=== PATIENT | female | born 1940 | race Caucasian/White ===

== ENCOUNTER 2017-12-19 13:54 | Outpatient (RCR) | payer MEDICARE, BC, SELFPAY ==
--- NOTE | 2017-12-19 14:00 | PTDS_ITS ---
Date: December 19, 2017 Referring: Mike Carr MD Diagnosis: Subjective: History of Present Illness: Reyna states her shoulder function and pain are better than what they were pre op, but she still has intermittent discomfort throughout the lateral aspect of proximal humerus with active movements, particularly out to the side and overhead. (-) resting pain. She is able to sleep on her R side. Her cervical spine pain is much improved too. 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 S/p cuff repair in early June of this year. She underwent rehab and was able to restore most of her ROM and she has been on a minimally supervised program ( MSP) for the past couple months. She has a follow up today. Three weeks ago she aggravated her shoulder when she was carrying a heavy grocery bag, not quite back to where she was before her exacerbation, but much improved. ROM: Her cervical spine motion is limited within an articular pattern, but without pain on movement. R shoulder motion reveals good initiation of flexion/abduction, but she has scapular substitution at approximately 60-70 degrees and she gets hung with abduction at 80-90 degrees, occasionally in the sagittal plane also. If she flexes her elbow at 90 degrees, she can generally get through the sagittal plane without blocking. Once she gets by this point, she is able to flex to around 145-150 degrees. Her L thumb is at the T8 level when reaching behind her back, R thumb is 1 below, this causes some drawing throughout the anterior aspect of the proximal humerus. Her ER with elbow tucked into her side is 70 degrees R, 60 degrees on the L. She has weakness and discomfort when loading her R shoulder into abduction, pure end scaption, lesser degree IR for subscap, (-) pain with elbow flexion or forearm supination. She has some mild tenderness to palpation over the greater tuberosity on the R compared to the L. To a lesser degree, posterior aspect of humeral head. Treatment: Therapeutic Procedure [id number] Treatment Time: 30 mins Assessment: Reyna's symptoms have improved compared to a couple months ago, but she still getting hung up in the impingement range of 60-120 and still has some discomfort when loading the supra spinatus and subscapularis component of her rotator cuff. Fortunately she has minimal resting pain and functionally she does relatively well as long as she reaches overhead with her arm in the sagittal plane. She feels she is still recovering. All goals have been obtained except for full active movements with movements out to the side(see below) Projected goal: __x__ Carrying, moving, and handling objects [id number], Discharge status of [id number] ST: Increase PROM of the R shoulder to 120 degrees flexion, 60-70 degrees rotation. 2: Protect the cuff repair. 3: Minimize development of an adhesive capsulitis which will significantly impair her function. LT: Active ROM of R shoulder within a functional range to complete all of her ADLs. 2: Return to premorbid level of function. Plan: Session consisted of the evaluation along with review of her HEP. Discharge from formal PT, but she is going to continue with a independent wellness program in clinic for general conditioning as well as continued independent scapular stabilization exercises. DLW/dl *Dr. Carr, please sign this discharge summary if you are in agreement with this plan. cc: Mike Carr MD
== END 2017-12-29 23:59 | disposition home or self-care (01) ==
LOC: PT 13:54
PROVIDERS: PCP Internal Medicine; Referring Provider Specialist; Visit Provider Specialist
DX: Z47.89 Encounter for other orthopedic aftercare (principal); M75.101 Unspecified rotator cuff tear or rupture of right shoulder, not specified as traumatic
CPT/HCPCS: 97110

== ENCOUNTER 2018-01-12 11:25 | Outpatient (REF) | payer MEDICARE, BC, SELFPAY ==
[2018-01-12 13:28] LABS: Anion Gap 7.7 mmol/L (3-11); BUN 31 mg/dL (7-18); CO2 25.3 mmol/L (21.0-32.0); CREATININE 1.15 mg/dL (0.55-1.02); Chloride 100 mmol/L (98-107); Cholesterol 183 mg/dL (50-200); Estimated GFR 45.76 (mL/min/1.73m2); Glucose 89 mg/dL (70-100); HDL Cholesterol 58 mg/dL (40-60); LDL CHOLESTEROL 107 mg/dL (<100); Potassium 4.6 mmol/L (3.5-5.1); Sodium 133 mmol/L (136-145); TSH 0.11 uIU/mL (0.358-3.74); Triglyceride 100 mg/dL (30-150)
== END 2018-01-12 11:45 ==
LOC: NCHCN 11:25
PROVIDERS: PCP Internal Medicine; Visit Provider Internal Medicine
DX: I10 Essential (primary) hypertension (principal); E03.9 Hypothyroidism, unspecified
CPT/HCPCS: 80048; 80061; 83721; 84443

== ENCOUNTER 2018-02-22 16:07 | Outpatient (REF) | payer MEDICARE, BC, SELFPAY ==
[2018-02-22 21:14] LABS: FREE T4 1.28 ng/dL (0.76-1.46); TSH 0.34 uIU/mL (0.358-3.74)
== END 2018-02-22 16:27 ==
LOC: NCHCN 16:07
PROVIDERS: PCP Internal Medicine; Visit Provider Internal Medicine
DX: E03.9 Hypothyroidism, unspecified (principal)
CPT/HCPCS: 84439; 84443

== ENCOUNTER 2018-10-04 01:10 | Outpatient (CLI) | payer MEDICARE, BC, SELFPAY ==
--- NOTE | 2018-10-04 15:20 | DI.RAD_ITS ---
SYMPTOMS/DIAGNOSIS: OSTEOPOROSIS, M81.0 DEXA SCAN: Routine examination. Evaluation of the lateral spine shows no compression deformities. Evaluation of the left hip shows a total T score of -1.8 and a Z score of 0.2. This is consistent with osteopenia and an increased fracture risk. This compares with a total T score of -1.2 from 2016. Evaluation of the lumbar spine shows marked left convex scoliosis. There is a total T score of 0.6 and a Z score of 3.1, which is within normal limits. This compares with a total T score of 0.3 from 2016. There is no evidence of osteoporosis. IMPRESSION: Osteopenia in the left hip.
== END 2018-10-04 01:30 ==
PROVIDERS: PCP Internal Medicine; Visit Provider Internal Medicine
DX: M85.88 Other specified disorders of bone density and structure, other site (principal); M81.0 Age-related osteoporosis without current pathological fracture
CPT/HCPCS: 77080

== ENCOUNTER 2019-01-14 12:42 | Outpatient (REF) | payer MEDICARE, BC, SELFPAY ==
[2019-01-14 21:39] LABS: TSH 0.14 uIU/mL (0.36-3.74)
[2019-01-14 21:55] LABS: Vitamin D 25 Total 64.1 ng/ml (30-100)
== END 2019-01-14 13:02 ==
LOC: NCHCN 12:42
PROVIDERS: PCP Internal Medicine; Visit Provider Internal Medicine
DX: E03.9 Hypothyroidism, unspecified (principal); E55.9 Vitamin D deficiency, unspecified
CPT/HCPCS: 82306; 84443

== ENCOUNTER 2019-01-23 01:59 | Outpatient (CLI) | payer MEDICARE, BC, SELFPAY ==
--- NOTE | 2019-02-11 12:21 | ZIOP_ITS ---
ZIO Patch Sports Administrator Note: This is a ZIO Patch ordered for dizziness. Total enrollment time was 12 days and 20 hours. ?Patient had a minimum heart rate of 50 bpm maximal heart rate of 135 bpm and average heart rate of 66 bpm ?The prominent underlying rhythm was sinus rhythm ?There were 2 runs of supraventricular tachycardia with the longest lasting 6 beats. ?There were rare (less than 1%) supraventricular ectopic beats as well as couplets and triplets. ?There were rare (less than 1%) ventricular ectopic beats and no couplets or triplets. ?There were no episodes of ventricular tachycardia, no pauses greater than 3 seconds, no high degree heart block, and no episodes of atrial fibrillation.
== END 2019-01-23 02:19 ==
PROVIDERS: PCP Internal Medicine; Visit Provider Internal Medicine
DX: R42 Dizziness and giddiness (principal); I47.1 Supraventricular tachycardia; I49.1 Atrial premature depolarization; I49.3 Ventricular premature depolarization
CPT/HCPCS: 0296T

== ENCOUNTER 2019-02-11 12:21 | Outpatient (CLI) | payer MEDICARE, BC, SELFPAY | END 2019-02-11 12:41 | PROVIDERS: PCP Internal Medicine; Referring Provider Internal Medicine; Visit Provider Internal Medicine Cardiovascular Disease | DX: R42 Dizziness and giddiness (principal); I47.1 Supraventricular tachycardia; I49.1 Atrial premature depolarization; I49.3 Ventricular premature depolarization | CPT/HCPCS: 0298T ==

== ENCOUNTER 2019-02-26 10:01 | Outpatient (REF) | payer MEDICARE, BC, SELFPAY ==
[2019-02-26 13:17] LABS: FREE T4 1.38 ng/dL (0.76-1.46); TSH 0.21 uIU/mL (0.36-3.74)
== END 2019-02-26 10:21 ==
LOC: NCHCN 10:01
PROVIDERS: PCP Internal Medicine; Visit Provider Internal Medicine
DX: E03.9 Hypothyroidism, unspecified (principal)
CPT/HCPCS: 84439; 84443

== ENCOUNTER 2019-09-02 09:22 | Outpatient (REF) | payer MEDICARE, BC, SELFPAY ==
[2019-09-02 20:55] LABS: Abs Immature Grans 0.01 k/cumm (0.0-0.09); Absolute Basophil Count 0.03 k/cumm (0.0-0.2); Absolute Lymphocyte Count 1.36 k/cumm (1.2-3.4); Absolute Monocyte Count 0.66 k/cumm (0.11-0.7); Absolute Neutrophil Count 3.34 k/cumm (1.2-6.7); Basophils % 0.5; Eosinophils % 1.8; HCT 36.9 % (36.0-46.0); HGB 12.4 g/dL (12.0-15.5); Immature Grans % 0.2 %; Lymphocytes % 24.7; Mean Corp. HGB Concentration 33.6 g/dL (32.0-36.0); Mean Corpuscular Hemoglobin 25.4 pg (27.0-33.0); Mean Corpuscular Volume 75.5 fL (80-95); Neutrophils % 60.8; Platelet Count 290 x1000/uL (130-400); RBC 4.89 m/cumm (4.00-5.20); RBC Distribution Width 15.5 % (11.7-14.6)
[2019-09-02 21:23] LABS: ALT 31 U/L (14-59); AST 34 U/L (15-37); Albumin 3.7 g/dL (3.4-5.0); Alkaline Phosphatase 93 U/L (46-116); Bilirubin, Direct 0.09 mg/dL (0.00-0.20); Bilirubin, Total 0.5 mg/dL (0.2-1.0); Total Protein 7.3 g/dL (6.4-8.2)
== END 2019-09-02 09:42 ==
LOC: NCHCN 09:22
PROVIDERS: PCP Internal Medicine; Visit Provider Internal Medicine
DX: M19.90 Unspecified osteoarthritis, unspecified site (principal); Z79.899 Other long term (current) drug therapy
CPT/HCPCS: 80076; 85025

== ENCOUNTER 2019-11-07 14:05 | Outpatient (REF) | payer MEDICARE, BC, SELFPAY ==
[2019-11-07 20:56] LABS: Anion Gap 10.4 mmol/L (3-11); BUN 29 mg/dL (7-18); CO2 22.6 mmol/L (21.0-32.0); CREATININE 0.96 mg/dL (0.55-1.02); Calcium 9.2 mg/dL (8.5-10.1); Chloride 95 mmol/L (98-107); Estimated GFR 56.06 (mL/min/1.73m2); Glucose 87 mg/dL (74-106); Potassium 4.9 mmol/L (3.5-5.1); Sodium 128 mmol/L (136-145)
== END 2019-11-07 14:25 ==
LOC: NCHCN 14:05
PROVIDERS: PCP Internal Medicine; Visit Provider Internal Medicine
DX: E87.1 Hypo-osmolality and hyponatremia (principal)
CPT/HCPCS: 80048

== ENCOUNTER 2019-12-06 14:15 | Outpatient (REF) | payer MEDICARE, BC, SELFPAY ==
[2019-12-06 21:37] LABS: Sodium 137 mmol/L (136-145)
[2019-12-08 16:47] LABS: Osmolality, Urine 573 mOsm/kg (150-1,150)
[2019-12-08 16:56] LABS: Osmolality Serum 288 mOsm/kg (275-295)
== END 2019-12-06 14:35 ==
LOC: NCHCN 14:15
PROVIDERS: PCP Internal Medicine; Visit Provider Internal Medicine
DX: E87.1 Hypo-osmolality and hyponatremia (principal)
CPT/HCPCS: 83935; 83930; 84295

== ENCOUNTER 2020-01-31 11:05 | Outpatient (REF) | payer MEDICARE, BC, SELFPAY ==
[2020-01-31 21:01] LABS: Abs Immature Grans 0.02 10^3/uL (0.0-0.06); Absolute Basophil Count 0.04 10^3/uL (0.0-0.2); Absolute Lymphocyte Count 1.19 10^3/uL (1.2-3.4); Absolute Monocyte Count 0.75 10^3/uL (0.1-0.8); Absolute Neutrophil Count 2.82 10^3/uL (1.2-6.7); Basophils % 0.8; HGB 11.7 g/dL (11.2-15.7); Immature Grans % 0.4; Lymphocytes % 24.2; MCH 24.9 pg (27.0-33.0); MCHC 32.5 % (32.0-36.0); MCV 76.6 fL (80-95); MPV 10.6 fL (8.0-11.0); Monocytes % 15.2; Neutrophils % 57.4; Nucleated RBC 0 %; Platelet Count 280 10^3/uL (130-400); RDW 15.6 % (11.7-14.6); WBC 4.92 10^3/uL (4.4-10.8)
[2020-01-31 21:17] LABS: ALT 25 U/L (14-59); AST 26 U/L (15-37); Albumin 3.6 g/dL (3.4-5.0); Alkaline Phosphatase 100 U/L (46-116); Bilirubin, Total 0.4 mg/dL (0.2-1.0); CREATININE 1.07 mg/dL (0.55-1.02); Estimated GFR 49.47 (mL/min/1.73m2); Total Protein 6.9 g/dL (6.4-8.2)
[2020-02-03 11:18] LABS: Sodium 134 mmol/L (136-145)
== END 2020-01-31 11:25 ==
LOC: NCHCN 11:05
PROVIDERS: PCP Internal Medicine; Visit Provider Internal Medicine
DX: M19.90 Unspecified osteoarthritis, unspecified site (principal); Z79.899 Other long term (current) drug therapy; E87.1 Hypo-osmolality and hyponatremia
CPT/HCPCS: 80076; 82565; 84295; 85025

== ENCOUNTER 2020-07-07 14:19 | Outpatient (REF) | payer MEDICARE, BC, SELFPAY ==
[2020-07-07 15:20] LABS: Abs Immature Grans 0.01 10^3/uL (0.0-0.06); Absolute Basophil Count 0.04 10^3/uL (0.0-0.2); Absolute Eosinophil Count 0.07 10^3/uL (0.0-0.7); Absolute Lymphocyte Count 1.24 10^3/uL (1.2-3.4); Absolute Monocyte Count 0.65 10^3/uL (0.1-0.8); Absolute Neutrophil Count 4.06 10^3/uL (1.2-6.7); Basophils % 0.7; Eosinophils % 1.2; HCT 36.3 % (36.0-46.0); HGB 11.8 g/dL (11.2-15.7); Immature Grans % 0.2; Lymphocytes % 20.4; MCH 25.5 pg (27.0-33.0); MCHC 32.5 % (32.0-36.0); MCV 78.6 fL (80-95); MPV 10.7 fL (8.0-11.0); Monocytes % 10.7; Neutrophils % 66.8; Nucleated RBC 0 %; Platelet Count 279 10^3/uL (130-400); RBC 4.62 10^6/uL (3.93-5.22); RDW 15.5 % (11.7-14.6); RDW-SD 43.8 fL; WBC 6.07 10^3/uL (4.4-10.8)
[2020-07-07 15:36] LABS: ALT 25 U/L (14-59); AST 27 U/L (15-37); Albumin 3.7 g/dL (3.4-5.0); Alkaline Phosphatase 89 U/L (46-116); Anion Gap 10.3 mmol/L (3-11); BUN 25 mg/dL (7-18); Bilirubin, Total 0.4 mg/dL (0.2-1.0); CO2 25.7 mmol/L (21.0-32.0); Calcium 9.3 mg/dL (8.5-10.1); Chloride 100 mmol/L (98-107); Estimated GFR 53.48 (mL/min/1.73m2); Glucose 81 mg/dL (74-106); Potassium 4.3 mmol/L (3.5-5.1); Sodium 136 mmol/L (136-145)
== END 2020-07-07 14:20 | disposition home or self-care (01) ==
LOC: NCHCN 14:19
PROVIDERS: PCP Internal Medicine; Visit Provider Internal Medicine
DX: M19.90 Unspecified osteoarthritis, unspecified site (principal); Z79.899 Other long term (current) drug therapy
CPT/HCPCS: 80053; 85025

== ENCOUNTER 2020-07-17 04:32 | Outpatient (CLI) | payer MEDICARE, BC, SELFPAY ==
--- NOTE | 2020-07-17 | DI.RAD_ITS ---
EXAM: XR RIBS LT W PA LAT CHEST CLINICAL HISTORY: CHEST WALL PAIN,R07.89,. COMPARISON: CR CHEST 2 VIEWS PA,LAT from 09/05/2014 FINDINGS: LUNGS: Clear. No pneumothorax is seen. No infiltrate or effusion. HEART: Normal in size. Aorta is mildly tortuous. BONES: No displaced rib fracture is seen. No bony destructive lesion is seen. The spine shows degene rative disc changes. No compression fracture. There is a scoliosis at the thoracolumbar junction. IMPRESSION: Unremarkable chest and left ribs. Thoracolumbar scoliosis.
== END 2020-07-17 04:52 ==
PROVIDERS: PCP Internal Medicine; Visit Provider Internal Medicine
DX: R07.89 Other chest pain (principal); M41.85 Other forms of scoliosis, thoracolumbar region
CPT/HCPCS: 71046; 71100

== ENCOUNTER 2020-09-15 21:45 | Outpatient (REF) | payer MEDICARE, BC, SELFPAY ==
[2020-09-15 20:39] LABS: HCT 34.2 % (36.0-46.0); HGB 11.5 g/dL (11.2-15.7); MCH 26.3 pg (27.0-33.0); MCHC 33.6 % (32.0-36.0); MCV 78.3 fL (80-95); MPV 10.6 fL (8.0-11.0); Platelet Count 262 10^3/uL (130-400); RBC 4.37 10^6/uL (3.93-5.22); RDW 14.6 % (11.7-14.6); RDW-SD 40.9 fL; WBC 5.72 10^3/uL (4.4-10.8)
[2020-09-15 20:58] LABS: ALT 25 U/L (14-59); AST 30 U/L (15-37); Albumin 3.7 g/dL (3.4-5.0); Alkaline Phosphatase 95 U/L (46-116); Anion Gap 9.4 mmol/L (3-11); BUN 25 mg/dL (7-18); Bilirubin, Total 0.4 mg/dL (0.2-1.0); CO2 25.6 mmol/L (21.0-32.0); CREATININE 1.1 mg/dL (0.55-1.02); Calcium 8.6 mg/dL (8.5-10.1); Chloride 98 mmol/L (98-107); Estimated GFR 47.91 (mL/min/1.73m2); FREE T4 1.39 ng/dL (0.76-1.46); Glucose 98 mg/dL (74-106); NT-proBNP 362 pg/mL (<300); Potassium 4.3 mmol/L (3.5-5.1); Sodium 133 mmol/L (136-145); TSH (W/Ref FT4) 1.05 uIU/mL (0.36-3.74); Total Protein 6.9 g/dL (6.4-8.2)
== END 2020-09-15 21:46 | disposition home or self-care (01) ==
LOC: NCHCN 21:45
PROVIDERS: PCP Internal Medicine; Visit Provider Internal Medicine
DX: R53.83 Other fatigue (principal); R06.09 Other forms of dyspnea; E03.9 Hypothyroidism, unspecified; I10 Essential (primary) hypertension
CPT/HCPCS: 80053; 85027; 83880; 84439; 84443

== ENCOUNTER 2020-09-16 07:58 | Outpatient (CLI) | payer MEDICARE, BC, SELFPAY ==
[2020-09-16 09:35] LABS: D-Dimer 1050 ng/mlFEU (<500)
== END 2020-09-16 07:59 | disposition home or self-care (01) ==
LOC: LBO 08:02
PROVIDERS: PCP Internal Medicine; Visit Provider Internal Medicine
DX: R06.09 Other forms of dyspnea (principal)
CPT/HCPCS: 36415; 85379

== ENCOUNTER 2020-09-17 12:49 | Outpatient (CLI) | payer MEDICARE, BC, SELFPAY ==
--- NOTE | 2020-09-17 | DI.CT_ITS ---
Exam(s) CT CHEST PE CTA EXAM: CT CHEST PE CTA CLINICAL HISTORY: BORRERO R06.09. TECHNIQUE: Imaging Protocol: CT angiography of the chest was performed using pulmonary embolus elmo col. Multi planar reconstructions were performed. CONTRAST MATERIAL: Intravenous: Omnipaque 350 Contrast volume: 100 cc COMPARISON: CT ABD PELVIS WITH CONTRAST from 12/07/2014 FINDINGS: CHEST: PULMONARY ARTERIES: There are no intraluminal filling defects to suggest acute pulmonary emboli. LUNGS: There is a small subpleural nodular density in the posterior aspect of the right lung which me asures 4 x 3 millimeters. This is in the superior segment of the right lower lobe.. There are no in filtrates nor evidence of pulmonary infarction.. There are no pleural effusions. MEDIASTINUM: There is no hilar nor mediastinal adenopathy. Visualized thyroid unremarkable. CARDIAC: Mild cardiomegaly. No pericardial effusion.Caliber of the thoracic aorta is upper normal. No dissection evident. There is no significant shift of the interventricular septum. PARTIALLY VISUALIZED UPPERMOST ABDOMEN: No significant adrenal masses. No splenomegaly. Gallbladder surgically absent. Incidentally noted is a subcapsular lesion in the upper right hepatic lobe which is probably a cyst or hemangioma and was evident in 2014. In addition, there is a small cyst in the lateral cortex of the right kidney partially included in the field. OSSEOUS: Multilevel chronic degenerative disc disease. No significant osseous lesions evident.. IMPRESSION: 1. No evidence of acute pulmonary emboli. No evidence of pulmonary infarction.No pleural effusions. However, there is a 4 x 3 millimeter subpleural small nodular density in the posterior aspect of the superior segment of the right lower lobe. Recommend follow-up CT scan in 6 months. 2. Mild cardiomegaly. No pericardial effusion. No aortic dissection. 3. Incidental abdominal findings as described above. RADIATION DOSE DELIVERED: 330.21mGy.cm Total DLP DATA REPOSITORY: All CT scans at this facility are submitted to the National Radiology Data Registry (NRDR) Dose Index Registry (DIR) with the [employer] ([employer]). RADIATION OPTIMIZATION: All CT scans at this facility use at least one of these dose optimization te chniques: automated exposure control; mA and/or kV adjustment per patient size (includes targeted exa ms where dose is matched to clinical indication); or iterative reconstruction.
== END 2020-09-17 13:09 ==
PROVIDERS: PCP Internal Medicine; Visit Provider Nurse Practitioner Family
DX: R06.09 Other forms of dyspnea (principal); I51.7 Cardiomegaly
CPT/HCPCS: 71275

== ENCOUNTER 2020-10-12 12:40 | Outpatient (CLI) | payer MEDICARE, BC, SELFPAY ==
--- NOTE | 2020-10-12 | DI.CT_ITS ---
Exam(s) CT HEAD WO EXAM: CT HEAD WO CLINICAL HISTORY: HX CLOSED HEAD INJURY Z87.820. TECHNIQUE: Imaging Protocol: Axial computed tomography images with coronal and sagittal reformatted images were created and reviewed COMPARISON: CT HEAD WITHOUT CONTRAST from 09/18/2008 FINDINGS: There is evidence of previous left parietal craniotomy. There is no evidence of intracranial hemorrhage, mass effect, or shift of midline structures. There are no extra-axial fluid collections. The ventricles are not enlarged or shifted and there is no blo od within the ventricular system nor within the basal cisterns. There is abundant bilateral periventricular hypodensity consistent with chronic small vessel disease. IMPRESSION: Abundant bilateral periventricular hypodensity consistent with chronic small vessel disease. If clin ically indicated follow-up MRI can be performed for added sensitivity and specificity. Again noted is evidence of previous left parietal craniotomy. RADIATION DOSE DELIVERED: 685.97mGy.cm Total DLP DATA REPOSITORY: All CT scans at this facility are submitted to the National Radiology Data Registry (NRDR) Dose Index Registry (DIR) with the [employer] (A[employer]). RADIATION OPTIMIZATION: All CT scans at this facility use at least one of these dose optimization te chniques: automated exposure control; mA and/or kV adjustment per patient size (includes targeted exa ms where dose is matched to clinical indication); or iterative reconstruction.
== END 2020-10-12 13:00 ==
PROVIDERS: PCP Internal Medicine; Visit Provider Family Medicine
DX: Z87.820 Personal history of traumatic brain injury (principal)
CPT/HCPCS: 70450

== ENCOUNTER 2020-11-17 09:13 | Outpatient (CLI) | payer MEDICARE, BC, SELFPAY ==
--- NOTE | 2020-11-17 | DI.CT_ITS ---
Exam(s) CT HEAD WO EXAM: CT HEAD WO CLINICAL HISTORY: DIZZINESS, R42; H/O CLOSED HEAD INJURY, Z87.820. TECHNIQUE: Imaging Protocol: Axial computed tomography images with coronal and sagittal reformatted images were created and reviewed COMPARISON: CT CT HEAD WO from 10/12/2020 FINDINGS: Ventricles and Extra axial spaces: Normal in size and morphology for the patient's age. Hemorrhage: None. Cerebral parenchyma: Mild mild white matter changes consistent with small vessel disease. Midline shift: None. Brainstem/Cerebellum: Normal. Calvarium: Left parietal craniotomy defect again noted.. Visualized Paranasal sinuses/Mastoids: Clear. Soft Tissues: Unremarkable. IMPRESSION: No acute intracranial process. RADIATION DOSE DELIVERED: 707.84mGy.cm Total DLP DATA REPOSITORY: All CT scans at this facility are submitted to the National Radiology Data Registry (NRDR) Dose Index Registry (DIR) with the [employer] (ACR). RADIATION OPTIMIZATION: All CT scans at this facility use at least one of these dose optimization te chniques: automated exposure control; mA and/or kV adjustment per patient size (includes targeted exa ms where dose is matched to clinical indication); or iterative reconstruction.
== END 2020-11-17 09:33 ==
PROVIDERS: PCP Internal Medicine; Visit Provider Family Medicine
DX: R42 Dizziness and giddiness (principal); Z87.820 Personal history of traumatic brain injury
CPT/HCPCS: 70450

== ENCOUNTER 2020-11-27 13:52 | Outpatient (REF) | payer MEDICARE, BC, SELFPAY ==
[2020-11-27 20:39] LABS: Abs Immature Grans 0.01 10^3/uL (0.0-0.06); Absolute Basophil Count 0.05 10^3/uL (0.0-0.2); Absolute Eosinophil Count 0.09 10^3/uL (0.0-0.7); Absolute Lymphocyte Count 1.39 10^3/uL (1.2-3.4); Absolute Monocyte Count 0.58 10^3/uL (0.1-0.8); Absolute Neutrophil Count 3.02 10^3/uL (1.2-6.7); Eosinophils % 1.8; HCT 37.9 % (36.0-46.0); HGB 12.1 g/dL (11.2-15.7); Immature Grans % 0.2; MCH 25.4 pg (27.0-33.0); MCHC 31.9 % (32.0-36.0); MCV 79.6 fL (80-95); MPV 10.6 fL (8.0-11.0); Monocytes % 11.3; Neutrophils % 58.7; Nucleated RBC 0 %; Platelet Count 291 10^3/uL (130-400); RBC 4.76 10^6/uL (3.93-5.22); RDW 14.9 % (11.7-14.6); WBC 5.14 10^3/uL (4.4-10.8)
[2020-11-27 20:55] LABS: ALT 24 U/L (14-59); AST 27 U/L (15-37); Albumin 3.8 g/dL (3.4-5.0); Alkaline Phosphatase 92 U/L (46-116); Anion Gap 7.8 mmol/L (3-11); BUN 19 mg/dL (7-18); Bilirubin, Total 0.4 mg/dL (0.2-1.0); CO2 27.2 mmol/L (21.0-32.0); Calcium 9.1 mg/dL (8.5-10.1); Chloride 101 mmol/L (98-107); Estimated GFR 53.35 (mL/min/1.73m2); Glucose 100 mg/dL (74-106); Potassium 4.5 mmol/L (3.5-5.1); Sodium 136 mmol/L (136-145); Total Protein 7.1 g/dL (6.4-8.2)
[2020-11-30 10:46] LABS: Lyme Ab w Rflx to Lyme Confirm Negative (Negative)
[2020-12-01 16:05] LABS: Anaplasma phagocytophilum Negative (Negative); B. miyamotoi PCR Negative (Negative); Babesia divergens/MO-1 Negative (Negative); Babesia duncani Negative (Negative); Babesia microti Negative (Negative); Ehrlichia chaffeensis Negative (Negative); Ehrlichia ewingii/canis Negative (Negative); Ehrlichia muris eauclairensis Negative (Negative)
== END 2020-11-27 13:53 | disposition home or self-care (01) ==
LOC: NCHCN 13:52
PROVIDERS: PCP Internal Medicine; Visit Provider Family Medicine
DX: M25.50 Pain in unspecified joint (principal)
CPT/HCPCS: 80053; 87798; 85025; 86618

== ENCOUNTER 2020-12-08 03:32 | Outpatient (CLI) | payer MEDICARE, BC, SELFPAY ==
[2020-12-08 10:28] LABS: Bilirubin Negative (Negative); Blood Negative (Negative); Clarity Clear (Clear); Glucose Negative (Negative); Ketones Negative (Negative); Leukocyte Esterase Negative (Negative); Nitrite Negative (Negative); Specific Gravity 1.015 (1.005-1.025); Urobilinogen 0.2 EU/dL (Up TO 0.2); pH 6.5 (5-8)
[2020-12-09 09:44] LABS: C3 Complement 133 mg/dL (81-157); C4 Complement 30 mg/dL (13-39)
[2020-12-10 12:24] LABS: dsDNA Ab, IgG <12.3 IU/mL (<30.0)
== END 2020-12-08 03:33 | disposition home or self-care (01) ==
PROVIDERS: PCP Internal Medicine; Visit Provider Nurse Practitioner Family
DX: R76.8 Other specified abnormal immunological findings in serum (principal); L93.2 Other local lupus erythematosus
CPT/HCPCS: 36415; 81003; 86160; 86225

== ENCOUNTER 2021-04-01 16:24 | Outpatient (REF) | payer MEDICARE, BC, SELFPAY ==
[2021-04-01 22:34] LABS: Abs Immature Grans 0.02 10^3/uL (0.0-0.06); Absolute Basophil Count 0.05 10^3/uL (0.0-0.2); Absolute Eosinophil Count 0.08 10^3/uL (0.0-0.7); Absolute Lymphocyte Count 1.23 10^3/uL (1.2-3.4); Absolute Monocyte Count 0.68 10^3/uL (0.1-0.8); Absolute Neutrophil Count 3.35 10^3/uL (1.2-6.7); Basophils % 0.9; Eosinophils % 1.5; HCT 35.5 % (36.0-46.0); HGB 11.6 g/dL (11.2-15.7); Immature Grans % 0.4; Lymphocytes % 22.7; MCH 25.7 pg (27.0-33.0); MCHC 32.7 % (32.0-36.0); MCV 78.7 fL (80-95); MPV 11.1 fL (8.0-11.0); Monocytes % 12.6; Neutrophils % 61.9; Nucleated RBC 0 %; Platelet Count 314 10^3/uL (130-400); RBC 4.51 10^6/uL (3.93-5.22); RDW 14.9 % (11.7-14.6); RDW-SD 43.1 fL; WBC 5.41 10^3/uL (4.4-10.8)
[2021-04-01 23:00] LABS: ALT 23 U/L (14-59); AST 25 U/L (15-37); Albumin 3.7 g/dL (3.4-5.0); Alkaline Phosphatase 84 U/L (46-116); Anion Gap 9.5 mmol/L (3-11); BUN 29 mg/dL (7-18); Bilirubin, Total 0.3 mg/dL (0.2-1.0); CO2 24.5 mmol/L (21.0-32.0); CREATININE 1.1 mg/dL (0.55-1.02); Calcium 8.6 mg/dL (8.5-10.1); Chloride 98 mmol/L (98-107); Estimated GFR 47.79 (mL/min/1.73m2); Glucose 74 mg/dL (74-106); Sodium 132 mmol/L (136-145)
== END 2021-04-01 16:25 | disposition home or self-care (01) ==
LOC: NCHCN 16:24
PROVIDERS: PCP Internal Medicine; Visit Provider Internal Medicine
DX: Z79.899 Other long term (current) drug therapy (principal); M19.90 Unspecified osteoarthritis, unspecified site
CPT/HCPCS: 80053; 85025

== ENCOUNTER 2021-05-24 01:54 | Outpatient (CLI) | payer MEDICARE, BC, SELFPAY ==
--- NOTE | 2021-05-24 13:35 | DI.RAD_ITS ---
Exam(s) XR CHEST 2V PA LATERAL EXAM: XR CHEST 2V PA LATERAL CLINICAL HISTORY: DYSPNEA ON EXERTION,R06.09,ASSESS FOR INTERSTITIAL LUNG DISEASE,INFLAMMATOR. TECHNIQUE: 2D digital imaging was performed. COMPARISON: CR XR RIBS LT W PA LAT CHEST from 07/17/2020 FINDINGS: Tenting of the right hemidiaphragm is unchanged. Surgical clips in the right axilla again noted. Heart size is normal. The mediastinum is not widened. Lungs are clear. No infiltrates nor pleural effusions. IMPRESSION: No acute pulmonary findings. DATA REPOSITORY: RADIATION DOSE DELIVERED:
== END 2021-05-24 02:14 ==
PROVIDERS: PCP Internal Medicine; Visit Provider Internal Medicine
DX: R06.09 Other forms of dyspnea (principal)
CPT/HCPCS: 71046

== ENCOUNTER 2021-06-17 00:57 | Outpatient (CLI) | payer MEDICARE, BC, SELFPAY ==
--- NOTE | 2021-06-17 | DI.US_ITS ---
APPROVED REPORT EXAM: Comprehensive 2D, Doppler, and color-flow Echocardiogram Patient Location: Out-Patient Team Assembly Line Machine Operator: Batool Moreno RDCS (AE) Indications: Dyspne on exerction Other Information Study Quality: Good Conclusion Normal left ventricular chamber size. Borderline concentric left ventricular hypertrophy with disprop ortionate upper septal thickening. Estimated ejection fraction is 60%. Wall motion is normal Normal right ventricular size and systolic function Both atria are normal in size Trileaflet aortic valve with mild regurgitation Mild mitral annular calcification with mild to moderate mitral regurgitation Normal tricuspid valve with mild to moderate regurgitation. Estimated right ventricular systolic pres sure is 27 mmHg Borderline dilated ascending aorta, 3.45 cm Wall motion Left Ventricle The left ventricle is normal size. The left ventricular systolic function is normal. The left ventric ular ejection fraction is within the normal range. Borderline concentric left ventricular hypertrophy . Disproportionate upper septal thickening There is normal LV segmental wall motion. There is no vent ricular septal defect visualized. LVEF is 60%. Right Ventricle The right ventricle is normal size. The right ventricular systolic function is normal. The RVSP is 27 .5 mmHg. Atria The left atrium size is normal. The right atrium size is normal. The interatrial septum is intact wit h no evidence for an atrial septal defect. Saline bubble contrast intravenous injection demonstrates PFO. Aortic Valve The aortic valve is normal in structure. Aortic valve is trileaflet. There is no aortic valvular sten osis. Mild aortic regurgitation. Mitral Valve Mild mitral annular calcification. No evidence of mitral valve stenosis. Mild to moderate mitral regu rgitation. Tricuspid Valve The tricuspid valve is normal in structure. There is no tricuspid valve stenosis. Mild to moderate tr icuspid regurgitation. Pulmonic Valve The pulmonary valve is normal in structure. There is no pulmonic valvular stenosis. Trace pulmonic re gurgitation. Great Vessels The aortic root is normal in size. The ascending aorta is mildly dilated. Aortic arch is not well vis ualized. IVC is normal in size and collapses >50% with inspiration. Pericardium There is no pericardial effusion. 2D Dimensions IVSD d PLAX 1.10 cm F: 0.6-1.0 LV Vol A2C d MOD 54.8 mL LVPW d PLAX 1.08 cm F: 0.6 - 1.0 LV Vol A4C d MOD 80.8 mL LVID d PLAX 4.27 cm F: 3.8 - 5.2 LA vol/ BSA A2C s A-L 31.9 mL/m2 LVDs 2.90 cm F: 2.2 - 3.5 LA vol/ BSA A4C s A-L 27.8 mL/m2 Ao Root d 2.99 cm F: 2.7 - 3.3 LA Vol/ BSA Biplane s A-L 30.7 mL/m2 RA Area A4C 11.85 cm2 LA Area A4C s MOD 15.67 cm2 RA Vol/ BSA A4C s A-L 17.5 mL/m2 LA Area A2C s MOD 17.29 cm2 Ao Asc Diam d 3.45 cm F: 2.3 - 3.1 LV EF A4C MOD 60.6 % LV EF Teichholz 58.9 % LV EF A2C MOD 60.7 % LVEF (Foster's) 59.78 % F: 54 - 74 LV EF Biplane MOD 59.8 % LV Volume 55.99 mL F: 46 - 106 SV 41.23 mL LV Volume Index 34.99 mL/m2 F: 29 - 61 SV Index 25.71 mL/m2 LV Vol Biplane MOD 69.0 mL FS 30.90 % LV Diastology MV E' medial 0.132 (>0.07 m/s) E/A Ratio 0.8 LV E/e MED 4.10 (<14) MV E Vmax 0.54 (0.4-1.3 m/s) MV E' lateral 0.059 (>0.1 m/s) MV A Vmax 0.70 (0.4-1.3 m/s) LV E/e LAT 9.25 (<14) MV E/A Ratio 0.74 MV E/E' medial 4.13 MV E/E' lateral 9.29 Aortic Valve LVOT Area 3.27 cm2 AoV Area Vmax 1.99 cm2 LVOT Vmax 0.97 m/s AoV Area/ BSA (Vmax) 1.24 cm2/m2 LVOT Mean Josep. 0.70 m/s JAMI Mean Josep. 2.06 cm2 LVOT Peak Grad 3.7 mmHg JAMI Mean Josep. Index 1.29 cm2/m2 LVOT Mean Grad 2.2 mmHg AR DT 2251 msec LVOT VTI 0.239 m AR PHT 653 msec LVOT Diam s 2.00 cm AoV Vmax 1.59 m/s Velocity Ratio 0.61 AoV Mean Josep. 1.11 m/s AoV Peak Grad 10.1 mmHg LVOT SV 78.11 mL AoV Mean Grad 5.4 mmHg AoV VTI 0.355 m AoV Area VTI 2.20 cm2 AoV Area/ BSA (VTI) 1.37 cm/m2 Mitral Valve MV DT 296 (160-240 msec) MR Vmax 5.65 m/s MV PHT 86 msec MR VTI 2.142 m MV Area PHT 2.57 cm2 MR Peak Grad 127.5 mmHg MV VTI 0.256 m MR Mean Grad 81.8 mmHg MV VTI Annulus 0.285 m MV Area VTI 3.44 (4.0-6.0 cm2) Pulmonary Valve PV Vmax 0.88 (0.5-1.5 m/s) RVOT Peak Gr. 1.09 mmHg PV Peak Grad 3.1 mmHg RVOT Mean Gr. 0.55 mmHg PV Mean Grad 1.6 mmHg RVOT VTI 0.102 m PV VTI 0.171 m RVOT Vmax 0.52 m/s Tricuspid Valve TR Peak Grad 24.5 mmHg TR Vmax 2.48 m/s RA Pressure 3.00 mmHg RVSP (TR) 27.5 mmHg
== END 2021-06-17 01:17 ==
PROVIDERS: PCP Internal Medicine; Visit Provider Internal Medicine
DX: R06.09 Other forms of dyspnea (principal); I08.3 Combined rheumatic disorders of mitral, aortic and tricuspid valves; I77.810 Thoracic aortic ectasia
CPT/HCPCS: 93306

== ENCOUNTER 2021-07-01 02:16 | Outpatient (CLI) | payer MEDICARE, BC, SELFPAY ==
--- NOTE | 2021-07-01 | DI.NM_ITS ---
APPROVED REPORT Exam: Exercise Treadmill Patient Location: Out-Patient Room/Bed: Stress Nurse: Karen Bee RN Ordering Provider:RYDER MERRILL, Contact Number: [phone] BMI: 25.50 Baseline Rhythm: Sinus Rhythm, 1D AV Block Indications: Dyspnea on exertion; AFib; osteoarthritis Medical History Medical History: Hypertension, AFib, BORRERO, lupus, anxiety, gerd Cardiac Medications: Tambocor, metoprolol succinate, losartan, levothyroxine Allergies: Hydrochlorothiazide, hydroxychloroquine sulfate, fluoxetine, codeine, fentanyl, fosemax, m orphine, opioids, doxycyline, tetrocycline, colchicine Cardiac Risk Factors: Hypertension, family hx Previous Cardiac Procedures: None Pretest Chest Pain Characteristics: None Exercise History: Physically active Physical Disabilities: None Lung Sounds: Clear to auscultation Heart Sounds: Regular Stress Test Details Test: Exercise stress testing was performed using a Americo protocol. Nuclear Acquisition: Rest Tc-99m/Stress Tc-99m 1 day Rest Isotope: Tc-99m Sestamibi. Dose: 10.8 Date: 07/01/2021 Injection Time: 0910 Stress Isotope: Tc-99m Sestamibi. Dose: 32.9 Date: 07/01/2021 Injection Time: 1110 HR Resting HR Supine: 72 bpm Max Heart Rate (APMHR): 140.121602 bpm Resting HR Standin bpm Target HR (85% APMHR): 119.510878 bpm Max HR Achieved: 146 bpm % of APMHR: 104.29 Recovery HR: 90 bpm HR response to stress: Normal HR response to stress Comment: Metoprolol succinate held for 48hrs BP Resting BP Supine: 162/84 mmHg Resting BP Standin/84 mmHg Max BP: 174/76 mmHg Recovery BP: 150/72 mmHg BP response to stress: Normal blood pressure response to stress. ECG Resting ECG: Sinus Rhythm, 1D AV Block Ectopy: None Stress ECG: Sinus Tachycardia ST Change: No significant ST segment changes noted Arrhythmia: None Recovery ECG: Sinus Rhythm, 1D AV Block Recovery ST Change: No significant ST segment changes noted Recovery Arrhythmia: Rare PVC Clinical Reason for Termination: Fatigue Stress Symptoms: General Fatigue, Dyspnea Exercise duration: 7 min26 sec Highest Stage Reached: Stage 3: 3.4 mph at 14% grade. Exercise capacity: 9.26 METs Williamson Treadmill Score: 5.9 Rate Pressure Product: 15909 Stress ECG Conclusion 1. Resting electrocardiogram first-degree AV block 2. Patient exercised on the Americo protocol completed a workload of 9.26 METS, stopping due to fatigue and shortness of breath 3. Normal heart rate and blood pressure response to exercise 4. Patient achieved greater than 100% of predicted heart rate for age 5. The electrocardiographic portion of the test showed no evidence of myocardial ischemia 6. Rare PVCs were seen Williamson Treadmill Score is 5.9 which is Low risk. Stress Test Summary STAGE Time (mins) Speed (mph) Grade (%) HR BP SYMPTOMS METS Supine 72 162/84 Standing 78 162/84 SpO2 98% 1 3 1.7 10 110 170/84 SpO2 98% 4.6 2 6 2.5 12 133 185/86 SpO2 97% 7 3 9 3.4 14 145 Moderate SOB, SpO2 97% 10.2 1 min recovery 133 174/76 Mild SOB, SpO2 98% 3 min recovery 98 168/66 SOB improving, SpO2 98% 6 min recovery 90 150/72 SOB resolved, SpO2 98% MPI Conclusion Normal myocardial perfusion without evidence of ischemia or prior infarction EF 64%, normal wall motion Radiologist Interpretation Radiologist agrees with Structural Design Engineer's Interpretation. Radiologist Interpretation by: Ashly Sahni MD Interpretation Date/Time: 07/01/2021 16:58:54
== END 2021-07-01 02:36 ==
PROVIDERS: PCP Internal Medicine; Visit Provider Internal Medicine
DX: R06.09 Other forms of dyspnea (principal); I48.91 Unspecified atrial fibrillation
CPT/HCPCS: 78452; 93016; 93018; 93017

== ENCOUNTER 2021-08-10 10:38 | Outpatient (REF) | payer MEDICARE, BC, SELFPAY ==
[2021-08-10 16:50] LABS: Abs Immature Grans 0.03 10^3/uL (0.0-0.06); Absolute Basophil Count 0.03 10^3/uL (0.0-0.2); Absolute Eosinophil Count 0.08 10^3/uL (0.0-0.7); Absolute Lymphocyte Count 1.24 10^3/uL (1.2-3.4); Absolute Monocyte Count 0.55 10^3/uL (0.1-0.8); Absolute Neutrophil Count 4.57 10^3/uL (1.2-6.7); Basophils % 0.5; Eosinophils % 1.2; HCT 35.4 % (36.0-46.0); HGB 11.4 g/dL (11.2-15.7); Immature Grans % 0.5; Lymphocytes % 19.1; MCH 25.5 pg (27.0-33.0); MCHC 32.2 % (32.0-36.0); MCV 79.2 fL (80-95); MPV 11.2 fL (8.0-11.0); Monocytes % 8.5; Neutrophils % 70.2; Nucleated RBC 0 %; Platelet Count 279 10^3/uL (130-400); RBC 4.47 10^6/uL (3.93-5.22); RDW 15.2 % (11.7-14.6); RDW-SD 43.4 fL
[2021-08-10 17:21] LABS: ALT 25 U/L (14-59); AST 24 U/L (15-37); Albumin 3.8 g/dL (3.4-5.0); Alkaline Phosphatase 89 U/L (46-116); BUN 27 mg/dL (7-18); Bilirubin, Total 0.4 mg/dL (0.2-1.0); CREATININE 1.2 mg/dL (0.55-1.02); Calcium 9.2 mg/dL (8.5-10.1); Chloride 101 mmol/L (98-107); Estimated GFR 43.23 (mL/min/1.73m2); Glucose 76 mg/dL (74-106); Potassium 4.2 mmol/L (3.5-5.1); Sodium 136 mmol/L (136-145); Total Protein 7.2 g/dL (6.4-8.2)
== END 2021-08-10 10:39 | disposition home or self-care (01) ==
LOC: NCHCN 10:38
PROVIDERS: PCP Internal Medicine; Visit Provider Internal Medicine
DX: Z79.899 Other long term (current) drug therapy (principal); L93.2 Other local lupus erythematosus
CPT/HCPCS: 80053; 85025

== ENCOUNTER 2021-09-29 19:20 | Outpatient (REF) | payer MEDICARE, BC, SELFPAY ==
[2021-09-29 15:26] LABS: Abs Immature Grans 0.02 10^3/uL (0.0-0.06); Absolute Basophil Count 0.05 10^3/uL (0.0-0.2); Absolute Eosinophil Count 0.06 10^3/uL (0.0-0.7); Absolute Lymphocyte Count 1.48 10^3/uL (1.2-3.4); Absolute Monocyte Count 0.67 10^3/uL (0.1-0.8); Absolute Neutrophil Count 3.53 10^3/uL (1.2-6.7); Basophils % 0.9; HCT 30.9 % (36.0-46.0); Immature Grans % 0.3; Lymphocytes % 25.5; MCH 25.8 pg (27.0-33.0); MCHC 32.4 % (32.0-36.0); MCV 80 fL (80-95); MPV 10.9 fL (8.0-11.0); Monocytes % 11.5; Neutrophils % 60.8; Platelet Count 286 10^3/uL (130-400); RBC 3.87 10^6/uL (3.93-5.22); RDW 14.6 % (11.7-14.6); RDW-SD 42.3 fL; WBC 5.81 10^3/uL (4.4-10.8)
[2021-09-29 15:58] LABS: ALT 23 U/L (14-59); AST 26 U/L (15-37); Albumin 3.7 g/dL (3.4-5.0); Alkaline Phosphatase 92 U/L (46-116); Anion Gap 9.8 mmol/L (3-11); BUN 32 mg/dL (7-18); Bilirubin, Total 0.4 mg/dL (0.2-1.0); CO2 24.2 mmol/L (21.0-32.0); Chloride 99 mmol/L (98-107); Estimated GFR 53.35 (mL/min/1.73m2); Glucose 89 mg/dL (74-106); Potassium 4.6 mmol/L (3.5-5.1); Sodium 133 mmol/L (136-145); Total Protein 6.8 g/dL (6.4-8.2)
== END 2021-09-29 19:21 | disposition home or self-care (01) ==
LOC: NCHCN 19:20
PROVIDERS: PCP Internal Medicine; Visit Provider Internal Medicine
DX: Z79.899 Other long term (current) drug therapy (principal)
CPT/HCPCS: 80053; 85025

== ENCOUNTER 2021-11-23 15:06 | Outpatient (REF) | payer MEDICARE, BC, SELFPAY ==
[2021-11-23 17:15] LABS: TSH (W/Ref FT4) 0.83 uIU/mL (0.36-3.74)
== END 2021-11-23 15:07 | disposition home or self-care (01) ==
LOC: NCHCN 15:06
PROVIDERS: PCP Internal Medicine; Visit Provider Internal Medicine
DX: I10 Essential (primary) hypertension (principal); E03.9 Hypothyroidism, unspecified; I48.0 Paroxysmal atrial fibrillation; F41.9 Anxiety disorder, unspecified
CPT/HCPCS: 84443

== ENCOUNTER 2022-01-23 07:44 | Emergency (ER) | payer MEDICARE, BC, SELFPAY ==
[2022-01-23 07:48] VITALS: BP 146/88; PULSE 75; RESP 17; TEMP 36.2; O2SAT 98
--- NOTE | 2022-01-23 07:54 | ED.GENADUL_ITS ---
Discharge Plan Disposition Patient Disposition: HOME Condition: Improving Discharge Details Clinical Impression: Acute diverticulitis Primary Care Provider: Liam Hidalgo ED Provider: Yvette Julio Home Meds and New Rx's Prescriptions: New amoxicillin-pot clavulanate 875-125 mg tablet 1 tab PO TID 14 Days Qty: 42 0RF Continued losartan 50 MG tablet 25 mg PO DAILY metoprolol succinate [Toprol XL] 50 MG tablet extended release 24 hr 12.5 mg PO DAILY levothyroxine [Synthroid] 100 MCG tablet 88 mcg PO DAILY flecainide [Tambocor] 50 MG tablet 50 mg PO BID Centrum Silver Women 1 EACH tablet 1 tab PO DAILY calcium carb and citrate-vitD3 [Citracal-D3 Slow Release] 1 EACH tablet extended release 2 tab PO DAILY Osteo Bi-Flex Triple Strength 1 EACH tablet 1 tab PO BID spironolactone 25 MG tablet 25 mg PO DAILY Qty: 0 0RF docusate sodium 50 mg Capsule 100 mg PO DAILY amlodipine 5 mg tablet 2.5 mg PO DAILY mycophenolate mofetil 500 mg tablet See Rx Instructions .ROUTE .COMPLEX Label Comments: TAKE 1 TABLET BY MOUTH EVERY MORNING AND TAKE 2 TABLETS BY MOUTH AT NIGHT Rx Instructions: Take 1 tab in the AM, 2 tabs at HS esomeprazole magnesium 40 mg capsule,delayed release(DR/EC) 1 cap PO DAILY Discharge Instructions Instructions: Diverticulitis (ED), Diverticulitis Diet (ED) Additional Instructions: Your CT scan today revealed that you have diverticulitis which is an infection in your intestines. A prescription for antibiotics has been sent electronically to [facility] in [facility]. Drink plenty of fluids and get plenty of rest. Take Tylenol as needed and directed for pain. Take the tramadol for pain not relieved with Tylenol. You can take the Reglan as needed and directed for nausea and vomiting. If you experience any symptoms of restlessness, you can take Benadryl as needed and directed. Follow-up with your primary doctor and general surgery for reevaluation. Return immediately to the emergency department if you develop any worsening or new concerning symptoms. Referrals: Key Franco MD [ [facility] STAFF PHYSICIAN] - Discharge Data Discharge Physician: Yvette Julio Medical Decision Making 0800 -- 81-year-old female with a history of paroxysmal atrial fibrillation, breast cancer in remission, GERD, hypertension, Graves' disease, intracerebral h emorrhage with craniotomy, tubal ligation and cholecystectomy presents with diffuse abdominal pain and loose stools since yesterday. Also admits to bright red blood in the toilet yesterday. Limit vitals within normal limits. Patient appears slightly uncomfortable but nontoxic. Her abdomen is soft but diffusely tender, worse in epigastrium. Differential diagnosis includes colitis, UTI, appendicitis, diverticulitis, gastroenteritis. We will place an IV, bolus IV fluids, screening labs, urinalysis, CT abdomen pelvis and give IV Tylenol and IV Phenergan and reassess. Bedside rectal exam normal to inspection with negative guaiac and no stool on exam. 1000 --labs and imaging reviewed. Normal white blood cell count. Magnesium 1.6, will replete. Troponin negative. TSH within normal limits. Urinalysis negative. CT reviewed and notes: IMPRESSION: 1. Hyperdensity in the descending colon may represent acute extravasation (i.e., acute gastrointestinal hemorrhage), as above, possibly from a diverticular source. 2. Wall thickening with mild pericolonic inflammatory change in the descending colon may be secondary to acute diverticulitis. 3. Hepatic cyst. No further follow-up is recommended. 4. Post cholecystectomy. 5. Significant lumbar levoscoliosis with degenerative changes. CT reviewed with Dr. Franco --as patient is hemodynamically stable with reassu ring labs and has not had active bleeding here, if pain controlled, can discharge to home with oral antibiotics. Patient reassessed and she feels much better. She had experienced some restlessness with Phenergan and was given Benadryl which improved this. She currently states her pain and nausea is much improved and she feels comfortable going home. She was able to take a dose of oral Augmentin here. We will give Reglan to go for home as needed for nausea and vomiting due to interaction of Zofran with her flecainide. She was given tramadol to go as needed for breakthrough pain. Patient placed on surgery follow-up list. A prescription for Augmentin sent electronically to her pharmacy. Usual and customary return precautions given prior to discharge. Medical Records Medical records reviewed: Yes I reviewed the patient's medical records. Imaging Data Radiologic Study: Radiologist's impression: CT Abdomen And Pelvis With Contrast Exam date and time: 01/23/2022 10:00 AM Age: 81 years old Clinical indication: Other: Diffuse abd pain, bright red rectal bleeding TECHNIQUE: Imaging protocol: Computed tomography of the abdomen and pelvis with contrast. Radiation optimization: All CT scans at this facility use at least one of these dose optimization techniques: automated exposure control; mA and/or kV adjustment per patient size (includes targeted exams where dose is matched to clinical indication); or iterative reconstruction. Contrast material: OMNIPAQUE 350; Contrast volume: 100 ml; Contrast route: INTRAVENOUS (IV);? COMPARISON: CT CHEST PE CTA 09/17/2020 2:24 PM FINDINGS: Liver: 1.7 cm low-density lesion near the dome of the liver likely represents a cyst. The liver is otherwise normal. Gallbladder and bile ducts: There are clips in the gallbladder fossa, post cholecystectomy. Pancreas: Normal. No ductal dilation. Spleen: Normal. No splenomegaly. Adrenal glands: Normal. No mass. Kidneys and ureters: There are multiple bilateral renal cysts, up to 18 mm. There is bilateral pelviectasis. Stomach and bowel: There are multiple scattered diverticula throughout the colon, with wall thickening and mild pericolonic inflammatory changes in the descending colon, may represent acute sigmoid diverticulitis. Appendix: The appendix is not visualized. Intraperitoneal space: Unremarkable. No free air. No significant fluid collection. Vasculature: Hyperdensity in the descending colon may represent acute extravasation, thin slice axial series 5, image 389, though noncontrast, arterial phase, and delayed phases were not obtained. Abdominal vasculature is normal. There is no abdominal aortic aneurysm. Lymph nodes: Unremarkable. No enlarged lymph nodes. Urinary bladder: Unremarkable as visualized. Reproductive: The uterus is normal. Bones/joints: There is a significant levoscoliosis of the lumbar spine, with associated degenerative changes. Soft tissues: Unremarkable. IMPRESSION: 1. Hyperdensity in the descending colon may represent acute extravasation (i.e., acute gastrointestinal hemorrhage), as above, possibly from a diverticular source. 2. Wall thickening with mild pericolonic inflammatory change in the descending colon may be secondary to acute diverticulitis. 3. Hepatic cyst. No further follow-up is recommended. 4. Post cholecystectomy. 5. Significant lumbar levoscoliosis with degenerative changes. Lab Data Lab results reviewed: Yes I reviewed the patient's lab results. Labs: Laboratory Tests Range/Units 01/23/22 01/23/22 01/23/22 08:41 08:41 08:41 WBC (4.4-10.8) 10^3/uL 8.84 RBC (3.93-5.22) 10^6/uL 4.45 Hgb (11.2-15.7) g/dL 11.4 Hct (36.0-46.0) % 34.8 L MCV (80-95) fL 78 L MCH (27.0-33.0) pg 25.6 L MCHC (32.0-36.0) % 32.8 RDW (11.7-14.6) % 14.7 H Plt Count (130-400) 10^3/uL 298 MPV (8.0-11.0) fL 10.5 Immature Gran % 0.3 Neutrophils % 77.9 Lymphocytes % 11.3 Monocytes % 8.8 Eosinophils % 1.1 Basophils % 0.6 Nucleated RBC % (0.0-0.3) % 0.0 Absolute Neutrophils (1.2-6.7) 10^3/uL 6.88 H Absolute Lymphocytes (1.2-3.4) 10^3/uL 1.00 L Absolute Monocytes (0.1-0.8) 10^3/uL 0.78 Absolute Eosinophils (0.0-0.7) 10^3/uL 0.10 Absolute Basophils (0.0-0.2) 10^3/uL 0.05 Sodium (136-145) mmol/L 133 L Potassium (3.5-5.1) mmol/L 3.8 Chloride (98-107) mmol/L 99 Carbon Dioxide (21.0-32.0) mmol/L 26.2 Anion Gap (3-11) mmol/L 7.8 BUN (7-18) mg/dL 23 H Creatinine (0.55-1.02) mg/dL 1.1 H Est GFR (CKD-EPI 2020) (mL/min/1.73m2) 50.48 Glucose (74-106) mg/dL 98 Calcium (8.5-10.1) mg/dL 9.2 Magnesium (1.8-2.4) mg/dL 1.6 L Total Bilirubin (0.2-1.0) mg/dL 0.4 AST (15-37) U/L 23 ALT (14-59) U/L 26 Alkaline Phosphatase (46-116) U/L 91 Troponin I (<or=60) ng/L < 50 Total Protein (6.4-8.2) g/dL 7.7 Albumin (3.4-5.0) g/dL 3.7 Lipase (73-393) U/L 158 TSH (0.36-3.74) uIU/mL 1.42 Cancelled Urine Color (Yellow) Urine Clarity (Clear) Urine pH (5-8) Ur Specific [place] (1.005-1.025) Urine Protein (Negative) mg/dL Urine Ketones (Negative) mg/dL Urine Blood (Negative) Urine Nitrite (Negative) Urine Bilirubin (Negative) Urine Urobilinogen (Up TO 0.2) EU/dL Ur Leukocyte Esterase (Negative) Urine Glucose (Negative) mg/dL Range/Units 01/23/22 08:41 WBC (4.4-10.8) 10^3/uL RBC (3.93-5.22) 10^6/uL Hgb (11.2-15.7) g/dL Hct (36.0-46.0) % MCV (80-95) fL MCH (27.0-33.0) pg MCHC (32.0-36.0) % RDW (11.7-14.6) % Plt Count (130-400) 10^3/uL MPV (8.0-11.0) fL Immature Gran % Neutrophils % Lymphocytes % Monocytes % Eosinophils % Basophils % Nucleated RBC % (0.0-0.3) % Absolute Neutrophils (1.2-6.7) 10^3/uL Absolute Lymphocytes (1.2-3.4) 10^3/uL Absolute Monocytes (0.1-0.8) 10^3/uL Absolute Eosinophils (0.0-0.7) 10^3/uL Absolute Basophils (0.0-0.2) 10^3/uL Sodium (136-145) mmol/L Potassium (3.5-5.1) mmol/L Chloride (98-107) mmol/L Carbon Dioxide (21.0-32.0) mmol/L Anion Gap (3-11) mmol/L BUN (7-18) mg/dL Creatinine (0.55-1.02) mg/dL Est GFR (CKD-EPI 2020) (mL/min/1.73m2) Glucose (74-106) mg/dL Calcium (8.5-10.1) mg/dL Magnesium (1.8-2.4) mg/dL Total Bilirubin (0.2-1.0) mg/dL AST (15-37) U/L ALT (14-59) U/L Alkaline Phosphatase (46-116) U/L Troponin I (<or=60) ng/L Total Protein (6.4-8.2) g/dL Albumin (3.4-5.0) g/dL Lipase (73-393) U/L TSH (0.36-3.74) uIU/mL Urine Color (Yellow) Yellow Urine Clarity (Clear) Clear Urine pH (5-8) 6.5 Ur Specific Oxford (1.005-1.025) 1.015 Urine Protein (Negative) mg/dL Negative Urine Ketones (Negative) mg/dL Negative Urine Blood (Negative) Negative Urine Nitrite (Negative) Negative Urine Bilirubin (Negative) Negative Urine Urobilinogen (Up TO 0.2) EU/dL 0.2 Ur Leukocyte Esterase (Negative) Negative Urine Glucose (Negative) mg/dL Negative HPI General Mode of arrival: ambulatory . Date/Time Provider Initiated Documentation: 01/23/22 07:53 . Limitations to Documentation: no limitations . Information obtained by: patient . HPI Narrative: Patient is an 81-year-old female with a history of paroxysmal atrial fibrillation, breast cancer in remission, hypertension, Graves' disease, intracranial hemorrhage with history of craniotomy, tubal ligation, cholecystectomy presents for diffuse abdominal pain and loose stools since yest afternoon. Patient states she received a COVID booster 3 days ago. She states yesterday she developed diffuse crampy abdominal pain with intermittent episodes of sharp pain. She states she frequently has constipation and attempted to have a bowel movement yesterday and experienced a hard bowel movement which is not unusual for her followed by diarrhea which happens occasionally. She states the stool was soft and brown. She states she noted bright red blood in the toilet. She admits to occasional nausea but denies any fever, vomiting, urinary symptoms or rectal pain. She has not taken any medication for pain. She states her pain is 8/10 at its worst and currently 2/10. She has not eaten anything since last night. She states she traveled to [place] 1 week ago but denies any known sick contacts or recent antibiotics. She states her last colonoscopy was within normal limits. Related Data Home Medications Medication Instructions Recorded Confirmed calcium carb,cit ER 600 mg-vit D3 2 tab PO DAILY 12/07/14 01/23/22 12.5 mcg (500 unit) tablet,ext.rel (Citracal-D3 Slow Release) flecainide 50 mg tablet (Tambocor) 50 mg PO BID 12/07/14 01/23/22 glucosamine 750 ry-zsjfhynccdh-ymw 1 tab PO BID 12/07/14 01/23/22 no1 644 mg-C 30 mg-raeann 1 mg tablet (Osteo Bi-Flex Triple Strength) levothyroxine 100 mcg tablet 88 mcg PO DAILY 12/07/14 01/23/22 (Synthroid) losartan 50 mg tablet 25 mg PO DAILY 12/07/14 01/23/22 metoprolol succinate 50 mg 12.5 mg PO DAILY 12/07/14 01/23/22 tablet,extended release 24 hr (Toprol XL) multivit with 1 tab PO DAILY 12/07/14 01/23/22 vziwswiv-fvyb-FL-lutein 8 mg iron-400 mcg-300 mcg tablet (Centrum Silver Women) spironolactone 25 mg tablet 25 mg PO DAILY ##0 12/08/14 01/23/22 amlodipine 5 mg tablet 2.5 mg PO DAILY 01/23/22 01/23/22 amoxicillin 875 mg-potassium 1 tab PO TID 14 days #42 tabs 01/23/22 clavulanate 125 mg tablet docusate sodium 50 mg capsule 100 mg PO DAILY 01/23/22 01/23/22 esomeprazole magnesium 40 mg 1 cap PO DAILY 01/23/22 01/23/22 capsule,delayed release mycophenolate mofetil 500 mg tablet See Rx Instructions .Route .COMPLEX 01/23/22 01/23/22 Previous Rx's Medication Instructions Recorded spironolactone 25 mg tablet 25 mg PO DAILY ##0 12/08/14 amoxicillin 875 mg-potassium 1 tab PO TID 14 days #42 tabs 01/23/22 clavulanate 125 mg tablet Allergies Allergy/AdvReac Type Severity Reaction Status Date / Time Opioids - Morphine Analogues AdvReac Severe Nausea Unverified 01/23/22 08:00 codeine AdvReac Intermediate Nausea Unverified 01/23/22 08:00 doxycycline AdvReac Intermediate Nausea Unverified 01/23/22 08:00 General Stated Complaint: Abd Prob REAGAN: 3 Review of Systems All systems reviewed & are unremarkable except as noted in HPI and below Constitutional Constitutional: Reports as per HPI, Denies chills, Denies excessive sweating, Denies fatigue and Denies fever(s) Eyes Eyes: Denies blurry vision ENT Ears, Nose, Mouth, and Throat: Denies dizziness, Denies sore throat and Denies throat swelling Cardiovascular Cardiovascular: Denies chest pain and Denies dyspnea Respiratory Respiratory: Denies cough and Denies dyspnea Gastrointestinal Gastrointestinal: Reports abdominal pain, Reports diarrhea, Reports nausea and Denies vomiting Genitourinary Genitourinary: Denies hematuria and Denies dysuria Musculoskeletal Musculoskeletal: Denies back pain and Denies numbness Integumentary/Breasts Skin/Breast: Denies lesions and Denies rash Neurologic Neurologic: Denies behavioral changes, Denies confusion, Denies dizziness, Denies localized weakness and Denies numbness Psychiatric Psychiatric: Denies behavioral changes, Denies confusion and Denies depression Endocrine Endocrine: Denies excessive sweating and Denies fatigue Hematologic/Lymphatic Hematologic/Lymphatic: Denies easy bruising and Denies lymphadenopathy Allergic/Immunologic Allergic/Immunologic: Denies throat swelling PFSH All Active Problems (Updated 01/23/22 @ 11:19 by Yvette Julio DO) Acute diverticulitis (Acute) Medical History (Updated 01/23/22 @ 11:19 by Yvette Julio DO) Atrial fibrillation Brain bleed Breast cancer GERD (gastroesophageal reflux disease) Graves' disease HTN (hypertension) Osteoarthritis Surgical History (Updated 01/23/22 @ 08:25 by Yvette Julio DO) H/O shoulder surgery History of bilateral tubal ligation History of bunionectomy History of craniotomy History of lumpectomy History of tonsillectomy Hx of cholecystectomy Social History Smoking/Tobacco Use Status: Never Smoking risk assessment performed?: Yes Alcohol Intake: current Alcohol Intake frequency: holidays/special occasions only Drug use: Never Substance use type: does not use Do you feel safe at home: Yes Do you feel safe in your relationship?: Yes Exam Const General: cooperative Orientation: alert, awake and oriented x3 HENMT Head: normal to inspection Ears: hearing grossly normal bilaterally, external ears normal and TM's normal bilaterally General nose exam: external nose normal Face and sinus: normal facial exam Mouth: oral mucosae normal Teeth and gingiva: dentition normal Throat: posterior oropharynx normal Eyes General: appearance normal, both eyes and all related structures Eyelids: eyelids normal Pupils: PERRL EOM: EOM intact bilaterally Neck Neck: normal visual inspection Lymphatic: no lymphadenopathy noted Chest Chest: normal inspection of the chest Resp Effort & Inspection: normal respiratory effort and able to speak in complete sentences Auscultation: clear to auscultation bilaterally Cardio Rate: regular rate Rhythm: regular rhythm GI Inspection: normal to inspection Palpation: soft, not firm, no guarding, no hepatosplenomegaly, no masses and tender (diffuse) Auscultation: normal bowel sounds Rectal Exam - female: visual inspection normal and heme negative stool Skin General skin exam: no rashes or lesions noted Neuro General: patient alert and patient awake Cognition: normal cognition Speech: speech normal Gait: normal gait Motor: muscle tone normal throughout Sensory Exam: no sensory deficits noted Extrem General: normal to inspection, full ROM and capillary refill normal Psych Appearance: grossly normal Mental Status: mental status grossly normal Speech and Movement: speech and movement normal Affect: normal affect Thought Process: normal
--- NOTE | 2022-01-23 08:15 | DI.CT_ITS ---
Exam(s) CT ABDOMEN PELVIS W EXAM: CT ABDOMEN PELVIS W INDICATION: diffuse abd pain, bright red rectal bleeding. COMPARISON: CT,NM,TMT NM MPI REST STRESS GRP from 07/01/2021 TECHNIQUE: FINDINGS: CT examination of the abdomen and pelvis was performed with intravenous infusion of 100 cc of Omnipaq ue 350. Images obtained through the lung bases are unremarkable. The liver is unremarkable in appearance except for a couple of apparent small hepatic cysts period. Gallbladder and bile ducts are CT normal. Pancreas appears normal. Spleen is unremarkable in appearance. Adrenals appear normal. The kidneys are unremarkable except for the presence of apparent small bilateral renal cysts with no evidence of hydronephrosis, nephrolithiasis, or renal mass.. Urinary bladder unremarkable. Abdominal aorta is of normal diameter and no major vascular abnormality is seen. No abdominal wall hernia. No abdominal or pelvic adenopathy. [employer]TER structures appear unremarkable for age. Appendix is not specifically visualized but there is no evidence of acute appendicitis. There is que stion of slight wall thickening with associated pericolonic fat edema the proximal descending colon, consider diverticulitis. No evidence of obstructive process period. IMPRESSION: Possible acute diverticulitis of proximal descending colon, no other significant acute findings.. RADIATION DOSE DELIVERED: 710.7mGy.cm Total DLP 710.7mGy.cm Total DLP !Error CTDIvol RADIATION OPTIMIZATION: All CT scans at this facility use at least one of these dose optimization te chniques: automated exposure control; mA and/or kV adjustment per patient size (includes targeted exa ms where dose is matched to clinical indication); or iterative reconstruction.
[2022-01-23 08:54] LABS: Abs Immature Grans 0.03 10^3/uL (0.0-0.06); Absolute Basophil Count 0.05 10^3/uL (0.0-0.2); Absolute Monocyte Count 0.78 10^3/uL (0.1-0.8); Absolute Neutrophil Count 6.88 10^3/uL (1.2-6.7); Basophils % 0.6; Eosinophils % 1.1; HCT 34.8 % (36.0-46.0); HGB 11.4 g/dL (11.2-15.7); Immature Grans % 0.3; Lymphocytes % 11.3; MCH 25.6 pg (27.0-33.0); MCHC 32.8 % (32.0-36.0); MCV 78 fL (80-95); MPV 10.5 fL (8.0-11.0); Monocytes % 8.8; Neutrophils % 77.9; Platelet Count 298 10^3/uL (130-400); RBC 4.45 10^6/uL (3.93-5.22); RDW 14.7 % (11.7-14.6); RDW-SD 41.8 fL; WBC 8.84 10^3/uL (4.4-10.8)
[2022-01-23 08:57] LABS: Bilirubin Negative (Negative); Blood Negative (Negative); Clarity Clear (Clear); Glucose Negative (Negative); Ketones Negative (Negative); Leukocyte Esterase Negative (Negative); Nitrite Negative (Negative); Specific Gravity 1.015 (1.005-1.025); Urobilinogen 0.2 EU/dL (Up TO 0.2); pH 6.5 (5-8)
[2022-01-23] MEDS: Normal Saline 1,000 ML 1000 ML IV (08:59)
[2022-01-23] MEDS: ACETAMINOPHEN 1,000 MG/100 ML BTL 400 MG IVPB (08:59)
[2022-01-23 09:20] LABS: ALT 26 U/L (14-59); AST 23 U/L (15-37); Albumin 3.7 g/dL (3.4-5.0); Alkaline Phosphatase 91 U/L (46-116); Anion Gap 7.8 mmol/L (3-11); BUN 23 mg/dL (7-18); Bilirubin, Total 0.4 mg/dL (0.2-1.0); CO2 26.2 mmol/L (21.0-32.0); CREATININE 1.1 mg/dL (0.55-1.02); Calcium 9.2 mg/dL (8.5-10.1); Chloride 99 mmol/L (98-107); Estimated GFR 50.48 (mL/min/1.73m2); Glucose 98 mg/dL (74-106); Lipase 158 U/L (73-393); Magnesium 1.6 mg/dL (1.8-2.4); Potassium 3.8 mmol/L (3.5-5.1); Sodium 133 mmol/L (136-145); TSH (W/Ref FT4) 1.42 uIU/mL (0.36-3.74); Total Protein 7.7 g/dL (6.4-8.2); Troponin I < 50 ng/L (<or=60)
[2022-01-23] MEDS: diphenhydrAMINE 50 MG/ML VIAL 25 MG IVP (09:54)
[2022-01-23] MEDS: Omnipaque 350 MG/ML 100 ML BTL IJ (10:02)
--- NOTE | 2022-01-23 10:30 | DI.VRAD_ITS ---
PROCEDURE INFORMATION: Exam: CT Abdomen And Pelvis With Contrast Exam date and time: 01/23/2022 10:00 AM Age: 81 years old Clinical indication: Other: Diffuse abd pain, bright red rectal bleeding TECHNIQUE: Imaging protocol: Computed tomography of the abdomen and pelvis with contrast. Radiation optimization: All CT scans at this facility use at least one of these dose optimization techniques: automated exposure control; mA and/or kV adjustment per patient size (includes targeted exams where dose is matched to clinical indication); or iterative reconstruction. Contrast material: OMNIPAQUE 350; Contrast volume: 100 ml; Contrast route: INTRAVENOUS (IV); COMPARISON: CT CHEST PE CTA 09/17/2020 2:24 PM FINDINGS: Liver: 1.7 cm low-density lesion near the dome of the liver likely represents a cyst. The liver is otherwise normal. Gallbladder and bile ducts: There are clips in the gallbladder fossa, post cholecystectomy. Pancreas: Normal. No ductal dilation. Spleen: Normal. No splenomegaly. Adrenal glands: Normal. No mass. Kidneys and ureters: There are multiple bilateral renal cysts, up to 18 mm. There is bilateral pelviectasis. Stomach and bowel: There are multiple scattered diverticula throughout the colon, with wall thickening and mild pericolonic inflammatory changes in the descending colon, may represent acute sigmoid diverticulitis. Appendix: The appendix is not visualized. Intraperitoneal space: Unremarkable. No free air. No significant fluid collection. Vasculature: Hyperdensity in the descending colon may represent acute extravasation, thin slice axial series 5, image 389, though noncontrast, arterial phase, and delayed phases were not obtained. Abdominal vasculature is normal. There is no abdominal aortic aneurysm. Lymph nodes: Unremarkable. No enlarged lymph nodes. Urinary bladder: Unremarkable as visualized. Reproductive: The uterus is normal. Bones/joints: There is a significant levoscoliosis of the lumbar spine, with associated degenerative changes. Soft tissues: Unremarkable. IMPRESSION: 1. Hyperdensity in the descending colon may represent acute extravasation (i.e., acute gastrointestinal hemorrhage), as above, possibly from a diverticular source. 2. Wall thickening with mild pericolonic inflammatory change in the descending colon may be secondary to acute diverticulitis. 3. Hepatic cyst. No further follow-up is recommended. 4. Post cholecystectomy. 5. Significant lumbar levoscoliosis with degenerative changes. Dictated and Authenticated by: Woodrow Durbin MD. Ordering:ARMANDO Crawford MD
[2022-01-23] MEDS: Magnesium Oxide 400 MG TAB PO (11:11)
[2022-01-23] MEDS: Amoxicillin 875/Clav. 125 TAB PO (11:11)
[2022-01-23] MEDS: Metoclopramide 10 MG TAB 20 MG PO (11:39)
--- NOTE | 2022-01-23 12:06 | NUR.NOTE ---
Referral for General Surgery to be seen for diverticulitis within 2 weeks was faxed -Nursing Note:
--- NOTE | 2022-01-23 13:49 | NUR.NOTE ---
Nursing Note: Daughter called asking about magnesium prescription. Per Dr Julio she was given a dose here in the ED does not need a supplement and that she needs to eat foods that are high in magnesium. Daughter was told this.
== END 2022-01-23 12:16 | disposition home or self-care (01) ==
PROVIDERS: Emergency Provider Physician Assistant; PCP Internal Medicine
DX: K57.92 Diverticulitis of intestine, part unspecified, without perforation or abscess without bleeding (principal); I10 Essential (primary) hypertension; I48.91 Unspecified atrial fibrillation; Z86.73 Personal history of transient ischemic attack (TIA), and cerebral infarction without residual deficits; Z98.51 Tubal ligation status
CPT/HCPCS: 80053; 83690; 96361; 96374; 96375; 99285; 74177; 81003; 83735; 84443; 84484; 85025; 99284; J0131; J1200; J3490

== ENCOUNTER 2022-02-04 11:19 | Outpatient (CLI) | payer MEDICARE, BC, SELFPAY ==
--- NOTE | 2022-02-04 10:30 | DI.RAD_ITS ---
Exam(s) XR KNEE LT 3V AP,LAT,AMY EXAM: XR KNEE LT 3V AP,LAT,AMY CLINICAL HISTORY: knee pain. TECHNIQUE: 2D digital imaging was performed. COMPARISON: CR XR KNEE RT 3V AP,LAT,AMY from 02/04/2022 FINDINGS: 3 views No evidence fracture or obvious joint effusion. There are moderate degenerative changes in the media l lateral compartments. Marginal osteophytes seen off the medial compartment as well as chondrocalci nosis in both medial lateral compartments. On the lateral view there appears to be narrowing of the patellofemoral compartment, difficult to assess accurately without a merchant's view. IMPRESSION: Degenerative changes as described above. DATA REPOSITORY: RADIATION DOSE DELIVERED:
--- NOTE | 2022-02-04 10:30 | DI.RAD_ITS ---
Exam(s) XR KNEE RT 3V AP,LAT,AMY EXAM: XR KNEE RT 3V AP,LAT,AMY CLINICAL HISTORY: knee pain. TECHNIQUE: 2D digital imaging was performed. COMPARISON: CR RIGHT KNEE 3 VIEWS from 05/10/2011 FINDINGS: 3 views No evidence of fracture joint effusion. Moderate degenerative changes are noted in the medial and la teral compartments. There appears to be significant thinning on lateral view within the patellofemor al. IMPRESSION: Degenerative changes. DATA REPOSITORY: RADIATION DOSE DELIVERED:
== END 2022-02-04 11:20 | disposition home or self-care (01) ==
LOC: DIORS 11:19
PROVIDERS: PCP Internal Medicine; Visit Provider Physician Assistant
DX: M17.11 Unilateral primary osteoarthritis, right knee (principal); M17.12 Unilateral primary osteoarthritis, left knee; M70.61 Trochanteric bursitis, right hip; M70.62 Trochanteric bursitis, left hip
CPT/HCPCS: 20610; 73562; 99213; J1040

== ENCOUNTER → 2022-02-08 13:50 | Outpatient (BNVA) | payer MEDICARE, BC, SELFPAY | PROVIDERS: PCP Internal Medicine; Referring Provider Internal Medicine; Visit Provider Surgery | DX: K57.92 Diverticulitis of intestine, part unspecified, without perforation or abscess without bleeding (principal) | CPT/HCPCS: 99213 ==

== ENCOUNTER → 2022-02-25 10:38 | Outpatient (BNVA) | payer MEDICARE, BC, SELFPAY | PROVIDERS: PCP Internal Medicine; Referring Provider Internal Medicine; Visit Provider Student in an Organized Health Care Education/Training Program | DX: M48.061 Spinal stenosis, lumbar region without neurogenic claudication (principal); M25.561 Pain in right knee; M25.562 Pain in left knee | CPT/HCPCS: 99213 ==

== ENCOUNTER 2022-03-03 11:30 | Outpatient (REF) | payer MEDICARE, BC, SELFPAY ==
[2022-03-03 15:03] LABS: HCT 32.9 % (36.0-46.0); HGB 10.8 g/dL (11.2-15.7); MCH 25.7 pg (27.0-33.0); MCHC 32.8 % (32.0-36.0); MCV 78 fL (80-95); Platelet Count 261 10^3/uL (130-400); RBC 4.21 10^6/uL (3.93-5.22); RDW-SD 42.5 fL; WBC 6.22 10^3/uL (4.4-10.8)
[2022-03-03 15:15] LABS: ALT 23 U/L (14-59); AST 30 U/L (15-37); Albumin 3.8 g/dL (3.4-5.0); Alkaline Phosphatase 76 U/L (46-116); Anion Gap 10.3 mmol/L (3-11); BUN 33 mg/dL (7-18); Bilirubin, Total 0.5 mg/dL (0.2-1.0); CO2 23.7 mmol/L (21.0-32.0); CREATININE 1.2 mg/dL (0.55-1.02); Calcium 9.2 mg/dL (8.5-10.1); Chloride 98 mmol/L (98-107); Estimated GFR 45.48 (mL/min/1.73m2); Glucose 92 mg/dL (74-106); Potassium 3.9 mmol/L (3.5-5.1); Sodium 132 mmol/L (136-145); Total Protein 7.4 g/dL (6.4-8.2)
== END 2022-03-03 11:31 | disposition home or self-care (01) ==
LOC: NCHCN 11:30
PROVIDERS: PCP Internal Medicine; Visit Provider Internal Medicine
DX: M13.89 Other specified arthritis, multiple sites (principal)
CPT/HCPCS: 80053; 85027

== ENCOUNTER 2022-03-14 06:57 | Day surgery (SDC) | payer MEDICARE, BC, SELFPAY ==
[2022-03-14] MEDS: Tropicam./Phenyleph. (1/2.5%) 5 ML BTL OD ×3 (07:07→07:22)
[2022-03-14 07:15] VITALS: BP 150/75; PULSE 70; RESP 18; TEMP 36.1; O2SAT 100
--- NOTE | 2022-03-14 07:30 | ANES.PREOP_ITS ---
General Info Date of Service Date Performed: 03/14/22 Height: 5 ft 1 in Weight: 58.8 kg Body Mass Index (BMI): 24.5 Surgical Procedure: Operation Date: 03/14/22 08:40 Proposed Procedure Side Surgeon p Cataract Extraction with IOL Implant Right Jimmy Zavala MD Meds Allergies and Home Medications Allergies Allergy/AdvReac Type Severity Reaction Status Date / Time hydrochlorothiazide Allergy Severe Swelling/Ed Verified 03/14/22 07:05 eloisa hydroxychloroquine Allergy Severe liver Verified 03/14/22 07:05 failure tetracycline Allergy Intermediate throat Verified 03/14/22 07:05 swollen alendronate sodium Allergy Mild pain in Verified 03/14/22 07:05 [From Fosamax] muscles and joints Opioids - Morphine Analogues AdvReac Severe Nausea Verified 03/14/22 07:05 codeine AdvReac Intermediate Nausea Verified 03/14/22 07:05 doxycycline AdvReac Intermediate Nausea Verified 03/14/22 07:05 fentanyl AdvReac Intermediate Nausea Verified 03/14/22 07:05 cholchicine Allergy Mild Skin Rash Uncoded 03/14/22 07:05 Home Medication Medication Instructions Recorded calcium carb,cit ER 600 mg-vit D3 2 tab PO DAILY 12/07/14 12.5 mcg (500 unit) tablet,ext.rel (Citracal-D3 Slow Release) flecainide 50 mg tablet (Tambocor) 50 mg PO BID 12/07/14 levothyroxine 100 mcg tablet 88 mcg PO DAILY 12/07/14 (Synthroid) losartan 50 mg tablet 25 mg PO DAILY 12/07/14 metoprolol succinate 50 mg 12.5 mg PO DAILY 12/07/14 tablet,extended release 24 hr (Toprol XL) multivit with 1 tab PO DAILY 12/07/14 luaqquhu-shar-BM-lutein 8 mg iron-400 mcg-300 mcg tablet (Centrum Silver Women) spironolactone 25 mg tablet 25 mg PO DAILY ##0 12/08/14 amlodipine 5 mg tablet 2.5 mg PO DAILY 01/23/22 docusate sodium 50 mg capsule 100 mg PO DAILY 01/23/22 esomeprazole magnesium 40 mg 1 cap PO DAILY 01/23/22 capsule,delayed release mycophenolate mofetil 500 mg tablet See Rx Instructions .Route .COMPLEX 01/23/22 Current Visit Medications: Current Medications Generic Name Dose Route Start Last Admin Trade Name Freq PRN Reason Stop Dose Admin Acetaminophen 1,000 mg 03/14/22 06:00 Acetaminophen 500 Mg Tab PO Q4H PRN PRN Miscellaneous Medication 0 ml 03/14/22 06:00 Prednisolone 1%, Moxifloxacin 0.5%, Nepafenac 0.1% 5ml Btl OD DIRECTED BHARAT Miscellaneous Medication 0 ml 03/14/22 06:00 03/14/22 07:22 Tropicam./Phenyleph. (1/2.5%) 5 Ml Btl OD 1 drp DIRECTED BHARAT Administration Tetracaine HCl 0 ml 03/14/22 06:00 Tetracaine 0.5% 4 Ml Btl OD DIRECTED BHARAT PFSH Active Problems Active Problems: Problem Status Onset Code Nuclear sclerotic cataract of right eye H25.11 Cortical cataract of right eye H26.9 Arthritis of both knees M17.0 Greater trochanteric bursitis of both hips M70.61, M70.62 Lumbar spinal stenosis M48.061 Medical History Medical History JOVANI positive Anxiety Atrial fibrillation Brain bleed Breast cancer Chilblains, subsequent encounter Chronic kidney disease Cutaneous lupus erythematosus Gait abnormality GERD (gastroesophageal reflux disease) Graves' disease Hiatal hernia History of closed head injury History of hepatitis HTN (hypertension) Inflammatory arthritis Knee pain, right Osteoarthritis Osteoporosis Post-nasal drip Shoulder pain, left Thalassemia Surgical History Surgical History H/O shoulder surgery History of bilateral tubal ligation History of bunionectomy History of craniotomy History of lumpectomy History of tonsillectomy Hx of cholecystectomy Tobacco Smoking/Tobacco Use Status: Never Alcohol Alcohol Intake: current Alcohol intake frequency: holidays/special occasions only Substance Use Substance use: Never Substance use type: does not use Vital Signs and Lab Results Vital Signs Most Recent Vital Signs in EMR: Most Recent Vital Signs Temp Pulse Resp BP Pulse Ox 36.1 C L 70 18 150/75 H 100 03/14/22 07:15 03/14/22 07:15 03/14/22 07:15 03/14/22 07:15 03/14/22 07:15 Lab Results Blood Type / Crossmatch: No Data to Display Complete Blood Count: White Blood Count 6.22 10^3/uL (4.4-10.8) 03/03/22 10:55 Red Blood Count 4.21 10^6/uL (3.93-5.22) 03/03/22 10:55 Hemoglobin 10.8 g/dL (11.2-15.7) L 03/03/22 10:55 Hematocrit 32.9 % (36.0-46.0) L 03/03/22 10:55 Platelet Count 261 10^3/uL (130-400) 03/03/22 10:55 Complete Metabolic Panel: Sodium 132 mmol/L (136-145) L 03/03/22 10:55 Potassium 3.9 mmol/L (3.5-5.1) 03/03/22 10:55 Chloride 98 mmol/L (98-107) 03/03/22 10:55 Carbon Dioxide 23.7 mmol/L (21.0-32.0) 03/03/22 10:55 BUN 33 mg/dL (7-18) H 03/03/22 10:55 Creatinine 1.2 mg/dL (0.55-1.02) H 03/03/22 10:55 Est GFR (CKD-EPI 2020) 45.48 (mL/min/1.73m2) 03/03/22 10:55 Calcium 9.2 mg/dL (8.5-10.1) 03/03/22 10:55 Albumin 3.8 g/dL (3.4-5.0) 03/03/22 10:55 Glucose 92 mg/dL (74-106) 03/03/22 10:55 Liver Function Panel: Alanine Aminotransferase (ALT/SGPT) 23 U/L (14-59) 03/03/22 10: 55 Aspartate Amino Transf (AST/SGOT) 30 U/L (15-37) 03/03/22 10:55 Coagulation Panel: No Data to Display Cardiac Panel: No Data to Display Arterial Blood Gas: No Data to Display Venous Blood Gas: No Data to Display Pancreas Panel: No Data to Display Thyroid Panel: No Data to Display Infectious Disease: No Data to Display Blood Cultures: No Data to Display Toxicology Panel: No Data to Display Anesthesia Assessment and Plan Anesthesia History Personal History: No History of Anesthesia Complications Family History: No Family History of Anesthesia Complications Exercise Tolerance Exercise Tolerance: Metabolic Equivalents>4 Pertinent Negatives Pertinent Negatives: No Symptoms of GERD (Medicated) Cardiac & Pulmonary Exam Cardiac Exam: Normal S1/S2 Heart Sounds Pulmonary Exam: Clear Bilateral Breath Sounds Implantable Cardiac Device Does patient have a Pacemaker or an ICD?: No Airway Exam Known Difficult Airway: No Mallampati Class: 3 Mouth Opening: Normal (> 3cm) Thyromental Distance: Greater than 3 cm Neck Range of Motion: Full ROM Neck Circumference: Normal Teeth Condition: Normal Dentition ASA Classification ASA Score: ASA 3 Emergency Case?: No NPO Status NPO Status: NPO Clears >2 hours, Solids >8 hours Anesthesia Plan Resuscitation Status: Full Code Anesthesia Technique: MAC Anesthesia Airway Planned: Natural Airway Monitors Used: Standard Monitors Preoperative Comments:: Wants JORGEO. very anxious
[2022-03-14 07:51] VITALS: BMI 24.5
[2022-03-14] MEDS: Tetracaine 0.5% 4 ML BTL OD (08:04)
[2022-03-14] MEDS: Lidocaine 2% Jelly 6 ML SYR (08:04)
[2022-03-14] MEDS: Povidone-Iodine Ophth 30 ML BTL (08:05)
[2022-03-14] MEDS: Lidocaine 1% Pres-Free 5 ML VIAL (08:12)
[2022-03-14] MEDS: Balanced Salt Soln.-PLUS 500 ML BAG (08:14)
[2022-03-14] MEDS: Duovisc Viscoelastic System EACH 1 EACH (08:15)
--- NOTE | 2022-03-14 08:36 | W.PM.DSUDISC ---
Date of service: 03/14/22 Time of Service: 08:37 Discharge Plan Disposition Patient Disposition: HOME Condition: Good Discharge Details Attending Provider: Jimmy Zavala Primary Care Provider: Liam Hidalgo Home Meds and New Rx's Prescriptions: No Action losartan 50 MG tablet 25 mg PO DAILY metoprolol succinate [Toprol XL] 50 MG tablet extended release 24 hr 12.5 mg PO DAILY levothyroxine [Synthroid] 100 MCG tablet 88 mcg PO DAILY flecainide [Tambocor] 50 MG tablet 50 mg PO BID Centrum Silver Women 1 EACH tablet 1 tab PO DAILY calcium carb and citrate-vitD3 [Citracal-D3 Slow Release] 1 EACH tablet extended release 2 tab PO DAILY spironolactone 25 MG tablet 25 mg PO DAILY Qty: 0 0RF docusate sodium 50 mg Capsule 100 mg PO DAILY amlodipine 5 mg tablet 2.5 mg PO DAILY mycophenolate mofetil 500 mg tablet See Rx Instructions .ROUTE .COMPLEX Label Comments: TAKE 1 TABLET BY MOUTH EVERY MORNING AND TAKE 2 TABLETS BY MOUTH AT NIGHT Rx Instructions: Take 1 tab in the AM, 2 tabs at HS esomeprazole magnesium 40 mg capsule,delayed release(DR/EC) 1 cap PO DAILY Discharge Instructions Stand Alone Forms: Post-op Topical Cataract, Jeanie Oro (DSU) Discharge Orders Discharge Orders: Discharge Order (Routine); Ordered 03/14/22 Ordered By: Jimmy Zavala DS: Diagnosis Discharge Diagnosis (1) Nuclear sclerotic cataract of right eye: Status: Resolved (2) Cortical cataract of right eye: Status: Resolved
[2022-03-14 08:37] VITALS: BP 121/61; PULSE 66; RESP 16; TEMP 36.1; O2SAT 97
--- NOTE | 2022-03-14 08:37 | ROE_ITS ---
Date of service: 03/14/22 Time of Service: 08:37 Operative Note Operative Note DATE OF PROCEDURE: 03/14/22 PRE-OP DIAGNOSIS: Nuclear/cortical cataract, right eye POST-OP DIAGNOSIS: same PROCEDURE: Cataract extraction using phacoemulsification with intraocular lens implant, right eye SURGEON: Jimmy Zavala ANESTHESIA TYPE: Local By Surgeon and MAC Refer to Anesthesia Record ESTIMATED BLOOD LOSS: 0 PATHOLOGY: none sent COMPLICATIONS: None Patient was transported to: same day Patient's condition: stable Implants: Matias & Matias/FIDEL Tecnis [id number] Indications: Progressive visual loss due to cataract, right eye Procedure Description: CATARACT SURGERY OPERATIVE REPORT PREOPERATIVE DIAGNOSIS: 1. Nuclear/cortical cataract, right eye POSTOPERATIVE DIAGNOSIS: Same OPERATION: 1. Cataract extraction using phacoemulsification with posterior chamber intraocular lens implant, right eye. IOL: IOL Gasoline Plant Operator/Model: Matias & Matias / FIDEL Tecnis [id number] IOL Power: + 21.5 diopters IOL Serial Number: [id number] Optic Diameter: 6.0mm Haptic/Overall Diameter: 13.0mm PHACO INFO: Beltran Cloud Elementsurion Vision System with OZil and Active Fluidics Cumulative Dispersed Energy (CDE): 8.05 seconds SURGEON: Jimmy Zavala MD, MARIO ALBERTO ANESTHESIA: Monitored Anesthesia Care (MAC), with local sub-tenon's anesthetic infiltration COMPLICATIONS: None SPECIMENS: None INDICATIONS FOR PROCEDURE: The patient is an 81-year-old lady with history of diminished visual acuity in her right eye secondary to the development of nuclear/cortical cataract. She is significantly symptomatic that she desires cataract surgery and attempt to improve and maximize her vision. The option of cataract surgery was offered to the patient and she wished to proceed. PROCEDURE: The correct surgical eye was identified and marked as the right eye and the pupil was dilated in the preoperative area using mydriatics and cycloplegics. The dilated pupil size was 7.0 mm. Oral sedation was administered in the form of an Imprimis MKO Melt (midazolam 3mg/ketamine 25mg/ondansetron 2mg). The patient was brought to the operating room where cardiopulmonary monitoring was instituted and surgical time-out was performed, confirming the correct operative eye and IOL power. Topical anesthesia was administered and ophthalmic povidone-iodine 5% was instilled into the conjunctival fornices. Lidocaine gel was applied to the cornea and the radha-ocular area was prepped with Betadine 10% solution and draped in the usual sterile fashion for intraocular surgery, including an aperture drape. A Tegaderm transparent film dressing was cut in half and used to cover the lashes and lid margins. Care was taken to sequester the lashes and lid margins under the Tegaderm dressing. A lid speculum was placed between the lids of the operative eye and the Beltran LuxOR Revalia operating microscope was maneuvered into position. Justice scissors were then used to make a conjunctival buttonhole approximately 6mm posterior to the limbus in the inferonasal quadrant. Blunt dissection was carried out to expose bare sclera, and a blunt-tipped sub-tenon?s anesthesia cannula was introduced and passed posteriorly along the globe where non- preserved plain lidocaine was injected into posterior sub-Tenon?s space. A sideport knife was used to make a paracentesis port inferotemporally. Intraocular phenylephrine/lidocaine was injected into the anterior chamber. The anterior chamber was filled with viscoelastic. A keratome knife was used to construct a 2-plane near-clear corneal tunnel extending 2.0mm into clear cornea superiortemporally. A flap was raised on the anterior capsule and capsulorhexis forceps were used to complete a continuous curvilinear capsulorhexis of 5.5 mm. Balanced salt solution was then used to perform cortical cleaving hydrodissectio n and nuclear hydrodelineation until the lens could be freely rotated within the capsular bag. The lens nucleus was then disassembled and removed within the capsular bag and iris plane using phacoemulsification. Residual cortical material was removed using the I/A handpiece. The posterior capsule was carefully polished to remove as much residual lens epithelial cells as safely possible. The capsular bag was then inflated and the anterior chamber deepened with viscoelastic. The lens implant described above was inserted into the capsular bag using the FIDEL Breaks Injector. A Kuglen hook was used to dial the IOL into position. Residual viscoelastic was then removed first from posterior to the IOL, then from the anterior chamber using the I/A handpiece. The lens implant was noted to center nicely within the capsular bag. The incisions were stromally hydrated, and the anterior chamber was reformed using BSS. Then 0.5cc of moxifloxacin 1.0mg/ml were injected into the capsular bag and anterior chamber. The incisions were checked with a Weck spear and found to be secure. Several drops of ophthalmic povidone-iodine 5% were then applied to the eye followed by two drops of Imprimis combination prednisolone/moxifloxacin/nepafenac solution. The drapes were removed and a clear plastic protective eye shield was placed over the eye. The patient was then returned to Same Day Surgery in stable condition.
--- NOTE | 2022-03-14 08:55 | W.ANESPOSTOP ---
Postoperative Evaluation Date, Time and Location Date Performed: 03/14/22 Time Performed: 08:45 Patient Location: Day Surgery Unit Vital Signs Most Recent Imported Vital Signs: Most Recent Vital Signs Temp Pulse Resp BP Pulse Ox 36.1 C L 66 16 121/61 97 03/14/22 08:37 03/14/22 08:37 03/14/22 08:37 03/14/22 08:37 03/14/22 08:37 Pain Score Most Recent Pain Score: Most Recent Pain Score Pain Level 0 03/14/22 08:37 Assessment Mental Status: Awake (Alert & Oriented to Patient Baseline) Airway and Respiratory Function: Patent airway with normal (patient baseline) respiratory exam Cardiovascular Function: Hemodynamically Stable Hydration Status: Adequately Hydrated Nausea & Vomiting: No Nausea or Vomiting Pain: Pt. Denies Any Pain Peripheral Nerve Block: Patient did not receive a nerve block
[2022-03-14 09:00] VITALS: BP 116/60; PULSE 65; RESP 16; TEMP 36.3; O2SAT 97
== END 2022-03-14 09:14 | disposition home or self-care (01) ==
LOC: SUR 06:57
PROVIDERS: PCP Internal Medicine; Visit Provider Ophthalmology
PROC: (CPT 66984; principal; 2022-03-14 08:30)
DX: H25.11 Age-related nuclear cataract, right eye (principal)
CPT/HCPCS: 66984; V2632

== ENCOUNTER → 2022-03-31 02:38 | Outpatient (CLI) | payer MEDICARE, BC, SELFPAY ==
--- NOTE | 2022-03-31 06:45 | DI.MRI_ITS ---
Exam(s) MR LUMBAR SPINE WO EXAM: MR LUMBAR SPINE WO CLINICAL HISTORY: back pain, lumbar spinal stenosis,m48.061. TECHNIQUE: Multiplanar multisequence MRI was performed. COMPARISON: No exams were available for comparison FINDINGS: MR examination lumbosacral spine was performed according to the usual protocol. No suspicious focal bony lesion identified, there is multilevel Gloria discal vertebral signal changes consistent with disc degeneration and there is marked loss of disc height throughout the lumbar region. There is a moder ate to severe left convex lumbar scoliosis. There is multilevel facet hypertrophic change throughout the lumbar region. Conus medullaris appears grossly intact. At T11-T12 there is left neural foraminal narrowing. No gross disc herniation or central spinal sten osis. At T12-L1, there is right lateral recess stenosis and left neural foraminal narrowing. No gross cent ral canal spinal stenosis although the canal is deformed secondary to facet hypertrophy. No disc her niation. At L1-2, there is right lateral recess stenosis and right neural foraminal narrowing. No other signi ficant findings. At L2-3, there are no significant findings. At L3-4, there is right neural foraminal stenosis. No additional significant findings. At L4-5 there is moderate central canal spinal stenosis and bilateral neural foraminal stenosis. At L5-S1, there is left neural foraminal stenosis. No disc herniation or central canal spinal stenos is. IMPRESSION: Marked multilevel degenerative changes with multilevel neural foraminal narrowing and moderate centra l canal spinal stenosis noted at L4-5. See above discussion for findings at individual levels. DATA REPOSITORY:
== END ==
PROVIDERS: PCP Internal Medicine; Visit Provider Student in an Organized Health Care Education/Training Program
DX: M48.061 Spinal stenosis, lumbar region without neurogenic claudication (principal)
CPT/HCPCS: 72148

== ENCOUNTER 2022-04-15 06:16 | Day surgery (SDC) | payer MEDICARE, BC, SELFPAY ==
[2022-04-15] MEDS: Tropicam./Phenyleph. (1/2.5%) 5 ML BTL OS ×3 (06:41→06:56)
[2022-04-15 06:51] VITALS: BP 141/73; PULSE 79; RESP 16; TEMP 36.6; O2SAT 100
--- NOTE | 2022-04-15 06:56 | W.PREOPHP ---
Assessment and Plan Assessment and plan (1) Nuclear sclerotic cataract of left eye: Status: Acute Assessment and plan: Assessment: Visually significant cataract left eye. Plan: cataract extraction with PCIOL left eye (2) Cortical cataract of left eye: Status: Acute Assessment and plan: Assessment: Visually significant cataract left eye. Plan: cataract extraction with PCIOL left eye History of Present Illness History of Present Illness Chief Complaint: decreased vision left eye Narrative: Progressive decreased vision left eye secondary to cataract. Previously underwent ce/iol 03/14/2022 OD and is doing well. Review of Systems All systems reviewed & are unremarkable except as noted in HPI and below PFSH All Active Problems Arthritis of both knees (Acute) Greater trochanteric bursitis of both hips (Acute) Lumbar spinal stenosis (Acute) Nuclear sclerotic cataract of left eye (Acute) Cortical cataract of left eye (Acute) Medical History JOVANI positive Anxiety Atrial fibrillation Brain bleed Breast cancer Chilblains, subsequent encounter Chronic kidney disease Cutaneous lupus erythematosus Gait abnormality GERD (gastroesophageal reflux disease) Graves' disease Hiatal hernia History of closed head injury History of hepatitis HTN (hypertension) Inflammatory arthritis Knee pain, right Osteoarthritis Osteoporosis Post-nasal drip Shoulder pain, left Thalassemia Surgical History H/O shoulder surgery History of bilateral tubal ligation History of bunionectomy History of cataract surgery History of craniotomy History of lumpectomy History of tonsillectomy Hx of cholecystectomy Social History Smoking/Tobacco Use Status: Never Smoking risk assessment performed?: Yes Alcohol Intake: current Alcohol Intake frequency: holidays/special occasions only Drug use: Never Substance use type: does not use Current gender identity: female Do you feel safe at home: Yes Do you feel safe in your relationship?: Yes Meds Allergies and Home Medications Allergies Allergy/AdvReac Type Severity Reaction Status Date / Time hydrochlorothiazide Allergy Severe Swelling/Ed Verified 04/15/22 06:46 eloisa hydroxychloroquine Allergy Severe liver Verified 04/15/22 06:46 failure tetracycline Allergy Intermediate throat Verified 04/15/22 06:46 swollen alendronate sodium Allergy Mild pain in Verified 04/15/22 06:46 [From Fosamax] muscles and joints Opioids - Morphine Analogues AdvReac Severe Nausea Verified 04/15/22 06:46 codeine AdvReac Intermediate Nausea Verified 04/15/22 06:46 doxycycline AdvReac Intermediate Nausea Verified 04/15/22 06:46 fentanyl AdvReac Intermediate Nausea Verified 04/15/22 06:46 cholchicine Allergy Mild Skin Rash Uncoded 04/15/22 06:46 Home Medications Medication Instructions Recorded Confirmed Type calcium carb,cit ER 600 mg-vit D3 2 tab PO DAILY 12/07/14 04/15/22 History 12.5 mcg (500 unit) tablet,ext.rel (Citracal-D3 Slow Release) flecainide 50 mg tablet (Tambocor) 50 mg PO BID 12/07/14 04/15/22 History levothyroxine 100 mcg tablet 88 mcg PO DAILY 12/07/14 04/15/22 History (Synthroid) losartan 50 mg tablet 25 mg PO DAILY 12/07/14 04/15/22 History metoprolol succinate 50 mg 12.5 mg PO DAILY 12/07/14 04/15/22 History tablet,extended release 24 hr (Toprol XL) multivit with 1 tab PO DAILY 12/07/14 04/15/22 History jewprgxa-pfxe-ST-lutein 8 mg iron-400 mcg-300 mcg tablet (Centrum Silver Women) spironolactone 25 mg tablet 25 mg PO DAILY ##0 12/08/14 04/15/22 Rx amlodipine 5 mg tablet 2.5 mg PO DAILY 01/23/22 04/15/22 History docusate sodium 50 mg capsule 100 mg PO DAILY 01/23/22 04/15/22 History esomeprazole magnesium 40 mg 1 cap PO DAILY 01/23/22 04/15/22 History capsule,delayed release mycophenolate mofetil 500 mg tablet See Rx Instructions .Route .COMPLEX 01/23/22 04/15/22 History Exam Eyes General: appearance normal, both eyes and all related structures Alignment and Position: alignment normal Periorbital: periorbital findings normal Eyelids: eyelids normal Conjunctivae: conjunctivae normal Sclera: sclerae normal Cornea: corneas normal Pupils: PERRL and normal by confrontation EOM: EOM intact bilaterally Direct ophthalmoscopy: normal light reflex, no photophobia, no papilledema, fundi normal bilaterally and anterior chamber normal Other: PCIOL OD. Nuclear/cortical cataract OS. Cardio Rate: regular rate Rhythm: regular rhythm Results Last Vital Signs Temp 36.6 C 04/15/22 06:51 Pulse 79 04/15/22 06:51 Resp 16 04/15/22 06:51 BP 141/73 H 04/15/22 06:51 Pulse Ox 100 04/15/22 06:51
[2022-04-15 07:20] VITALS: BMI 24.0
--- NOTE | 2022-04-15 07:20 | W.ANESPRE ---
General Info Date of Service Date Performed: 04/15/22 Height: 5 ft 1.81 in Weight: 59.1 kg Body Mass Index (BMI): 24.0 Surgical Procedure: Operation Date: 04/15/22 07:40 Proposed Procedure Side Surgeon p Cataract Extraction with IOL Implant Left Jimmy Zavala MD Actual Procedure Side Surgeon p Cataract Extraction with IOL Implant Left Jimmy Zavala MD Pre-Op Diagnosis Post-Op Diagnosis Left eye cataract Left eye cataract Meds Allergies and Home Medications Allergies Allergy/AdvReac Type Severity Reaction Status Date / Time hydrochlorothiazide Allergy Severe Swelling/Ed Verified 04/15/22 06:46 eloisa hydroxychloroquine Allergy Severe liver Verified 04/15/22 06:46 failure tetracycline Allergy Intermediate throat Verified 04/15/22 06:46 swollen alendronate sodium Allergy Mild pain in Verified 04/15/22 06:46 [From Fosamax] muscles and joints Opioids - Morphine Analogues AdvReac Severe Nausea Verified 04/15/22 06:46 codeine AdvReac Intermediate Nausea Verified 04/15/22 06:46 doxycycline AdvReac Intermediate Nausea Verified 04/15/22 06:46 fentanyl AdvReac Intermediate Nausea Verified 04/15/22 06:46 cholchicine Allergy Mild Skin Rash Uncoded 04/15/22 06:46 Home Medication Medication Instructions Recorded calcium carb,cit ER 600 mg-vit D3 2 tab PO DAILY 12/07/14 12.5 mcg (500 unit) tablet,ext.rel (Citracal-D3 Slow Release) flecainide 50 mg tablet (Tambocor) 50 mg PO BID 12/07/14 levothyroxine 100 mcg tablet 88 mcg PO DAILY 12/07/14 (Synthroid) losartan 50 mg tablet 25 mg PO DAILY 12/07/14 metoprolol succinate 50 mg 12.5 mg PO DAILY 12/07/14 tablet,extended release 24 hr (Toprol XL) multivit with 1 tab PO DAILY 12/07/14 nzflhgvo-bvwi-KU-lutein 8 mg iron-400 mcg-300 mcg tablet (Centrum Silver Women) spironolactone 25 mg tablet 25 mg PO DAILY ##0 12/08/14 amlodipine 5 mg tablet 2.5 mg PO DAILY 01/23/22 docusate sodium 50 mg capsule 100 mg PO DAILY 01/23/22 esomeprazole magnesium 40 mg 1 cap PO DAILY 01/23/22 capsule,delayed release mycophenolate mofetil 500 mg tablet See Rx Instructions .Route .COMPLEX 01/23/22 Current Visit Medications: Current Medications Generic Name Dose Route Start Last Admin Trade Name Freq PRN Reason Stop Dose Admin Acetaminophen 1,000 mg 04/15/22 06:00 Acetaminophen 500 Mg Tab PO Q4H PRN PRN Miscellaneous Medication 0 ml 04/15/22 06:00 Prednisolone 1%, Moxifloxacin 0.5%, Nepafenac 0.1% 5ml Btl OS DIRECTED BHARAT Miscellaneous Medication 0 ml 04/15/22 06:00 04/15/22 06:56 Tropicam./Phenyleph. (1/2.5%) 5 Ml Btl OS 1 drp DIRECTED BHARAT Administration Tetracaine HCl 0 ml 04/15/22 06:00 Tetracaine 0.5% 4 Ml Btl OS DIRECTED BHARAT PFSH Active Problems Active Problems: Problem Status Onset Code Arthritis of both knees M17.0 Greater trochanteric bursitis of both hips M70.61, M70.62 Lumbar spinal stenosis M48.061 Cortical cataract of right eye H26.9 Nuclear sclerotic cataract of right eye H25.11 Nuclear sclerotic cataract of left eye H25.12 Cortical cataract of left eye H26.9 Medical History Medical History JOVANI positive Anxiety Atrial fibrillation Brain bleed Breast cancer Chilblains, subsequent encounter Chronic kidney disease Cutaneous lupus erythematosus Gait abnormality GERD (gastroesophageal reflux disease) Graves' disease Hiatal hernia History of closed head injury History of hepatitis HTN (hypertension) Inflammatory arthritis Knee pain, right Osteoarthritis Osteoporosis Post-nasal drip Shoulder pain, left Thalassemia Surgical History Surgical History H/O shoulder surgery History of bilateral tubal ligation History of bunionectomy History of cataract surgery History of craniotomy History of lumpectomy History of tonsillectomy Hx of cholecystectomy Tobacco Smoking/Tobacco Use Status: Never Alcohol Alcohol Intake: current Alcohol intake frequency: holidays/special occasions only Substance Use Substance use: Never Substance use type: does not use Vital Signs and Lab Results Vital Signs Most Recent Vital Signs in EMR: Most Recent Vital Signs Temp Pulse Resp BP Pulse Ox 36.6 C 79 16 141/73 H 100 04/15/22 06:51 04/15/22 06:51 04/15/22 06:51 04/15/22 06:51 04/15/22 06:51 Lab Results Blood Type / Crossmatch: No Data to Display Complete Blood Count: No Data to Display Complete Metabolic Panel: No Data to Display Liver Function Panel: No Data to Display Coagulation Panel: No Data to Display Cardiac Panel: No Data to Display Arterial Blood Gas: No Data to Display Venous Blood Gas: No Data to Display Pancreas Panel: No Data to Display Thyroid Panel: No Data to Display Infectious Disease: No Data to Display Blood Cultures: No Data to Display Toxicology Panel: No Data to Display Anesthesia Assessment and Plan Anesthesia History Personal History: No History of Anesthesia Complications Family History: No Family History of Anesthesia Complications Exercise Tolerance Exercise Tolerance: Metabolic Equivalents>4 Cardiac & Pulmonary Exam Cardiac Exam: Other Pulmonary Exam: Clear Bilateral Breath Sounds Implantable Cardiac Device Does patient have a Pacemaker or an ICD?: No Airway Exam Known Difficult Airway: No Mallampati Class: 3 Mouth Opening: Normal (> 3cm) Thyromental Distance: Greater than 3 cm Neck Range of Motion: Full ROM Neck Circumference: Normal Teeth Condition: Normal Dentition ASA Classification ASA Score: ASA 3 Emergency Case?: No NPO Status NPO Status: NPO Clears >2 hours, Solids >8 hours Anesthesia Plan Resuscitation Status: Full Code Anesthesia Technique: MAC Anesthesia Airway Planned: Natural Airway Monitors Used: Standard Monitors
[2022-04-15] MEDS: Balanced Salt Soln.-PLUS 500 ML BAG (07:45)
[2022-04-15] MEDS: Duovisc Viscoelastic System EACH 1 EACH (07:46)
[2022-04-15] MEDS: Lidocaine 2% Jelly 6 ML SYR (07:46)
[2022-04-15] MEDS: Povidone-Iodine Ophth 30 ML BTL (07:47)
[2022-04-15] MEDS: Tetracaine 0.5% 4 ML BTL OS (07:48)
--- NOTE | 2022-04-15 08:06 | W.PM.DSUDISC ---
Date of service: 04/15/22 Time of Service: 08:48 Discharge Plan Disposition Patient Disposition: Home Discharge Details Attending Provider: Jimmy Zavala Primary Care Provider: Liam Hidalgo Home Meds and New Rx's Prescriptions: No Action losartan 50 MG tablet 25 mg PO DAILY metoprolol succinate [Toprol XL] 50 MG tablet extended release 24 hr 12.5 mg PO DAILY levothyroxine [Synthroid] 100 MCG tablet 88 mcg PO DAILY flecainide [Tambocor] 50 MG tablet 50 mg PO BID Centrum Silver Women 1 EACH tablet 1 tab PO DAILY calcium carb and citrate-vitD3 [Citracal-D3 Slow Release] 1 EACH tablet extended release 2 tab PO DAILY spironolactone 25 MG tablet 25 mg PO DAILY Qty: 0 0RF docusate sodium 50 mg Capsule 100 mg PO DAILY amlodipine 5 mg tablet 2.5 mg PO DAILY mycophenolate mofetil 500 mg tablet See Rx Instructions .ROUTE .COMPLEX Label Comments: TAKE 1 TABLET BY MOUTH EVERY MORNING AND TAKE 2 TABLETS BY MOUTH AT NIGHT Rx Instructions: Take 1 tab in the AM, 2 tabs at HS esomeprazole magnesium 40 mg capsule,delayed release(DR/EC) 1 cap PO DAILY Discharge Instructions Stand Alone Forms: Post-op Topical CataractJeanie (DSU) Discharge Orders Discharge Orders: Discharge Order (Routine); Ordered 04/15/22 Ordered By: Jimmy Zavala Discharge Data Discharge Date/Time-TO BE ENTERED AT DEPARTURE: 04/15/22 08:35 DS: Diagnosis Discharge Diagnosis (1) Nuclear sclerotic cataract of left eye: Status: Resolved (2) Cortical cataract of left eye: Status: Resolved
[2022-04-15 08:07] VITALS: BP 133/77; PULSE 73; RESP 16; TEMP 36.3; O2SAT 97
--- NOTE | 2022-04-15 08:23 | W.ANESPOSTOP ---
Postoperative Evaluation Date, Time and Location Date Performed: 04/15/22 Time Performed: 08:15 Patient Location: Day Surgery Unit Vital Signs Most Recent Imported Vital Signs: Most Recent Vital Signs Temp Pulse Resp BP Pulse Ox 36.3 C L 73 16 133/77 97 04/15/22 08:07 04/15/22 08:07 04/15/22 08:07 04/15/22 08:07 04/15/22 08:07 Pain Score Most Recent Pain Score: Most Recent Pain Score Pain Level 0 04/15/22 08:07 Assessment Mental Status: Awake (Alert & Oriented to Patient Baseline) Airway and Respiratory Function: Patent airway with normal (patient baseline) respiratory exam Cardiovascular Function: Hemodynamically Stable Hydration Status: Adequately Hydrated Nausea & Vomiting: No Nausea or Vomiting Pain: Pt. Denies Any Pain Peripheral Nerve Block: Patient did not receive a nerve block
[2022-04-15 08:32] VITALS: BP 119/69; PULSE 71; RESP 16; TEMP 36.5; O2SAT 98
--- NOTE | 2022-04-15 08:49 | W.PM.OP ---
Date of service: 04/15/22 Time of Service: 08:49 Operative Note Operative Note DATE OF PROCEDURE: 04/15/22 PRE-OP DIAGNOSIS: Nuclear/cortical cataract, left eye POST-OP DIAGNOSIS: same PROCEDURE: Cataract extraction using phacoemulsification with intraocular lens implant, left eye SURGEON: Jimmy Zavala ANESTHESIA TYPE: Local By Surgeon and MAC Refer to Anesthesia Record PATHOLOGY: none sent COMPLICATIONS: None Patient was transported to: same day Patient's condition: stable Implants: [employer] Matias / [employer] Tecnis [id number] Indications: Progressive decreased vision due to cataract, left eye Procedure Description: CATARACT SURGERY OPERATIVE REPORT PREOPERATIVE DIAGNOSIS: 1. Nuclear/cortical cataract, left eye POSTOPERATIVE DIAGNOSIS: Same OPERATION: 1. Cataract extraction using phacoemulsification with posterior chamber intraocular lens implant, left eye. IOL: IOL Subassemblies Wirer/Model: Matias [employer] Matias / FIDEL Tecnis [id number] IOL Power: + 21.0 diopters IOL Serial Number: [id number] Optic Diameter: 6.0 mm Haptic/Overall Diameter: 13.0 mm PHACO INFO: Beltran[employer]urion Vision System with OZil and Active [employer]uidics Cumulative Dispersed Energy (CDE): 14.39 seconds SURGEON: Jimmy Zavala MD, MARIO ALBERTO ANESTHESIA: Monitored A [facility] (MAC), with local sub-tenon's anesthetic infiltration COMPLICATIONS: None SPECIMENS: None INDICATIONS FOR PROCEDURE: The patient is an 81-year-old lady with history of diminished visual acuity in both eyes secondary to the development of bilateral nuclear/cortical cataract. She has already undergone cataract surgery in the right eye and is doing well postoperatively. She now presents for cataract surgery in the left eye. PROCEDURE: The correct surgical eye was identified and marked as the left eye and the pupil was dilated in the preoperative area using mydriatics and cycloplegics. The dilated pupil size was 7.0 mm. Oral sedation was administered in the form of an Imprimis MKO Melt (midazolam 3mg/ketamine 25mg/ondansetron 2mg). The patient was brought to the operating room where cardiopulmonary monitoring was instituted and surgical time-out was performed, confirming the correct operative eye and IOL power. Topical anesthesia was administered and ophthalmic povidone-iodine 5% was instilled into the conjunctival fornices. Lidocaine gel was applied to the cornea and the radha-ocular area was prepped with Betadine 10% solution and draped in the usual sterile fashion for intraocular surgery, including an aperture drape. A Tegaderm transparent film dressing was cut in half and used to cover the lashes and lid margins. Care was taken to sequester the lashes and lid margins under the Tegaderm dressing. A lid speculum was placed between the lids of the operative eye and the Beltran LuxOR Revalia operating microscope was maneuvered into position. Justice scissors were then used to make a conjunctival buttonhole approximately 6mm posterior to the limbus in the inferonasal quadrant. Blunt dissection was carried out to expose bare sclera, and a blunt-tipped sub-tenon?s anesthesia cannula was introduced and passed posteriorly along the globe where non-preserved plain lidocaine was injected into posterior sub-Tenon?s space. A sideport knife was used to make a paracentesis port superiorly/superiortemporally. Intraocular phenylephrine/lidocaine was injected int the anterior chamber.. The anterior chamber was filled with viscoelastic. A keratome knife was used to construct a 2-plane near-clear corneal tunnel extending 2.0mm into clear cornea temporally. A flap was raised on the anterior capsule and capsulorhexis forceps were used to complete a continuous curvilinear capsulorhexis of 5.0 mm. Balanced salt solution was then used to perform cortical cleaving hydrodissection and nuclear hydrodelineation until the lens could be freely rotated within the capsular bag. The lens nucleus was then disassembled and removed within the capsular bag and iris plane using phacoemulsification. Residual cortical material was removed using the 45-degree angled silicone I/A tip with 0.3mm port. The posterior capsule was carefully polished to remove as much residual lens epithelial cells as safely possible. The capsular bag was then inflated and the anterior chamber deepened with viscoelastic. The lens implant described above was inserted into the capsular bag using the FIDEL [place]' Injector. A Kuglen hook was used to dial the IOL into position. Residual viscoelastic was then removed first from posterior to the IOL, then from the anterior chamber using the I/A handpiece. The lens implant was noted to center nicely within the capsular bag. The incisions were stromally hydrated, and the anterior chamber was reformed using BSS. Then 0.5cc of moxifloxacin 1.0mg/ml were injected into the capsular bag and anterior chamber. The incisions were checked with a Weck spear and found to be secure. Several drops of ophthalmic povidone-iodine 5% were then applied to the eye followed by two drops of Imprimis combination prednisolone/moxifloxacin/nepafenac solution. The drapes were removed and a clear plastic protective eye shield was placed over the eye. The patient was then returned to Same Day Surgery in stable condition.
== END 2022-04-15 08:35 | disposition home or self-care (01) ==
LOC: SUR 06:17
PROVIDERS: PCP Internal Medicine; Visit Provider Ophthalmology
PROC: (CPT 66984; principal; 2022-04-15 07:30)
DX: H25.12 Age-related nuclear cataract, left eye (principal); I48.91 Unspecified atrial fibrillation; I12.9 Hypertensive chronic kidney disease with stage 1 through stage 4 chronic kidney disease, or unspecified chronic kidney disease; N18.9 Chronic kidney disease, unspecified
CPT/HCPCS: 66984; V2632

== ENCOUNTER 2022-05-09 18:49 | Emergency (ER) | payer MEDICARE, BC, SELFPAY ==
[2022-05-09 18:56] VITALS: BP 124/66; PULSE 72; RESP 18; TEMP 36.7; O2SAT 96
--- NOTE | 2022-05-09 19:00 | DI.CT_ITS ---
Exam(s) CT ABDOMEN PELVIS W EXAM: CT ABDOMEN PELVIS W CLINICAL HISTORY: lower abdominal pain TECHNIQUE: Imaging Protocol: Axial computed tomography images with coronal and sagittal reformatted images were created and reviewed CONTRAST MATERIAL: Intravenous: Omnipaque 350 Contrast volume:100 mL Oral: No COMPARISON: CT ABD PELVIS WITH CONTRAST from 12/07/[address] CHEST PE CTA from 09/17/[address] ABDOMEN PELVIS W from 01/23/2022 FINDINGS: ABDOMEN: Lung Bases: Normal where visualized. Liver: Normal density. There are stable cysts within the liver. No suspicious hepatic masses are see n. There has been no change in the cyst 1 cm cyst in the left lobe of the liver. Portal, Superior Mesenteric, and Splenic Veins: Unremarkable. Gallbladder and Biliary Tract: Status post cholecystectomy. Stable intra and extrahepatic biliary du ctal dilatation. The common bile duct measures 1.2 cm. This is unchanged compared to 01/23/2022. Th is is also unchanged dating back to 12/07/2014. Pancreas: Normal density, no abnormal calcifications or inflammatory process. Spleen: Normal. Adrenals: No masses seen. Kidneys: Normal size, contour and axis. No radiodense stones or obstructive uropathy. Bilateral simpl e renal cysts are present. No follow-up is recommended. Abdominal Aorta: Abdominal portion non-dilated. Atherosclerosis is present. Bowel: No obstruction or bowel wall thickening. No evidence of appendicitis. There are fluid-filled loops of small bowel present. This may represent an ileus. Peritoneal Cavity: No ascites, collection or mesenteric inflammatory response. No free air. Lymph Nodes: Within normal limits. Bones: Within normal limits for the patient's age. Soft Tissues: Unremarkable. PELVIS: Bladder: Symmetric distention, no gross wall thickening. Reproductive Organs: Unremarkable as visualized. Lymph Nodes: Within normal limits. Bones: Within normal limits for the patient's age. IMPRESSION: 1. Multiple fluid-filled loops of small bowel which may represent an ileus. Enteritis should be cons idered. Please correlate clinically. 2. Stable intra and extrahepatic biliary ductal dilatation since 2014. 3. Stable cysts in the liver including a 1 cm cyst in the left lobe of the liver. RADIATION DOSE DELIVERED: 797.98mGy.cm Total DLP DATA REPOSITORY: All CT scans at this facility are submitted to the National Radiology Data Registry (NRDR) Dose Index Registry (DIR) with the [employer] (ACR). RADIATION OPTIMIZATION: All CT scans at this facility use at least one of these dose optimization te chniques: automated exposure control; mA and/or kV adjustment per patient size (includes targeted exa ms where dose is matched to clinical indication); or iterative reconstruction.
--- NOTE | 2022-05-09 19:11 | ED.GENADUL_ITS ---
Discharge Plan Disposition Patient Disposition: Home Condition: Stable Discharge Details Clinical Impression: Abdominal pain Primary Care Provider: Liam Hidalgo ED Provider: Balwinder Baum Home Meds and New Rx's Prescriptions: New amoxicillin-pot clavulanate 875-125 mg tablet 1 tab PO BID Qty: 14 0RF Continued losartan 50 MG tablet 25 mg PO DAILY metoprolol succinate [Toprol XL] 50 MG tablet extended release 24 hr 12.5 mg PO DAILY levothyroxine [Synthroid] 100 MCG tablet 88 mcg PO DAILY flecainide [Tambocor] 50 MG tablet 50 mg PO BID Centrum Silver Women 1 EACH tablet 1 tab PO DAILY calcium carb and citrate-vitD3 [Citracal-D3 Slow Release] 1 EACH tablet extended release 2 tab PO DAILY spironolactone 25 MG tablet 25 mg PO DAILY Qty: 0 0RF docusate sodium 50 mg Capsule 100 mg PO DAILY amlodipine 5 mg tablet 2.5 mg PO DAILY mycophenolate mofetil 500 mg tablet See Rx Instructions .ROUTE .COMPLEX Label Comments: TAKE 1 TABLET BY MOUTH EVERY MORNING AND TAKE 2 TABLETS BY MOUTH AT NIGHT Rx Instructions: Take 1 tab in the AM, 2 tabs at HS esomeprazole magnesium 40 mg capsule,delayed release(DR/EC) 1 cap PO DAILY Discharge Instructions Instructions: Abdominal Pain (ED) Additional Instructions: follow up with your primary care provider within 1 week if you feel more ill, have severe worsening pain or persistent vomiting return to the emergency department Medical Decision Making 81 yo female with hx of afib, prior diverticulitis, who comes in with cc of abdominal pain since this morning and diarrhea. Denies fevers, chills, chest pain, dyspnea, n/v. She arrives stable and appears well, localizes the pain to the lower abdomen. She is tender without guarding in the llq and rlq, no upper abdominal pain, no distention. Suspect diverticulitis, will obtain cbc, cmp, lipase and ct abd/pelvis. labs unremarkable, ct shows fluid filled loops of small ileus and does have intrahepatic ductal dilation, negative lft's and bilirubin and has no upper abdominal tenderness so likely is from post cholecystectomy state and her age. She feels improved and well enough to go home, tolerating po, minimal lower abdominal tenderness. Will treat as possible early diverticulitis with augmentin, advised to f/u with pcp, return precautions given Differential Diagnosis Differential Diagnosis: diverticulitis, colitis Medical Records Medical records reviewed: Yes I reviewed the patient's medical records. Imaging Data Radiologic Study: Attestation: I personally reviewed and interpreted this imaging study as follows: Imaging: CT Scan Radiologist's impression: IMPRESSION: 1. Intra hepatic ductal dilatation The common duct is prominent. It measures 12.5 millimeters. This may be due to post cholecystectomy state and elderly status. However, if biliary obstruction is suspected clinically, recommend further evaluation. 2. 10 mm low-attenuation area left lobe of the liver 30 Hounsfield units series 4, image 17.. 3. Multiple fluid-filled loops of small bowel may represent ileus. Lab Data Lab results reviewed: Yes I reviewed the patient's lab results. HPI General Mode of arrival: ambulatory . Date/Time Provider Initiated Documentation: 05/09/22 18:53 . Limitations to Documentation: no limitations . Information obtained by: patient . History of Present Illness 81 year old F presents to the emergency department with the chief complaint of abdominal pain, described as moderate, Patient started experiencing this day(s) (1) and it has been constant. No relieving factors improve symptom(s), No exacerbating factors reported . Patient notes other (diarrhea); denies fever/chills and nausea/vomiting. Patient did receive the following treatments prior to arrival, none Related Data Home Medications Medication Instructions Recorded Confirmed calcium carb,cit ER 600 mg-vit D3 2 tab PO DAILY 12/07/14 05/09/22 12.5 mcg (500 unit) tablet,ext.rel (Citracal-D3 Slow Release) flecainide 50 mg tablet (Tambocor) 50 mg PO BID 12/07/14 05/09/22 levothyroxine 100 mcg tablet 88 mcg PO DAILY 12/07/14 05/09/22 (Synthroid) losartan 50 mg tablet 25 mg PO DAILY 12/07/14 05/09/22 metoprolol succinate 50 mg 12.5 mg PO DAILY 12/07/14 05/09/22 tablet,extended release 24 hr (Toprol XL) multivit with 1 tab PO DAILY 12/07/14 05/09/22 rjnzeatr-eyrs-PT-lutein 8 mg iron-400 mcg-300 mcg tablet (Centrum Silver Women) spironolactone 25 mg tablet 25 mg PO DAILY ##0 12/08/14 05/09/22 amlodipine 5 mg tablet 2.5 mg PO DAILY 01/23/22 05/09/22 docusate sodium 50 mg capsule 100 mg PO DAILY 01/23/22 05/09/22 esomeprazole magnesium 40 mg 1 cap PO DAILY 01/23/22 05/09/22 capsule,delayed release mycophenolate mofetil 500 mg tablet See Rx Instructions .Route .COMPLEX 01/23/22 05/09/22 amoxicillin 875 mg-potassium 1 tab PO BID #14 tabs 05/09/22 clavulanate 125 mg tablet Previous Rx's Medication Instructions Recorded spironolactone 25 mg tablet 25 mg PO DAILY ##0 12/08/14 amoxicillin 875 mg-potassium 1 tab PO BID #14 tabs 05/09/22 clavulanate 125 mg tablet Allergies Allergy/AdvReac Type Severity Reaction Status Date / Time hydrochlorothiazide Allergy Severe Swelling/Ed Verified 04/15/22 06:46 eloisa hydroxychloroquine Allergy Severe liver Verified 04/15/22 06:46 failure tetracycline Allergy Intermediate throat Verified 04/15/22 06:46 swollen alendronate sodium Allergy Mild pain in Verified 04/15/22 06:46 [From Fosamax] muscles and joints Opioids - Morphine Analogues AdvReac Severe Nausea Verified 04/15/22 06:46 codeine AdvReac Intermediate Nausea Verified 04/15/22 06:46 doxycycline AdvReac Intermediate Nausea Verified 04/15/22 06:46 fentanyl AdvReac Intermediate Nausea Verified 04/15/22 06:46 cholchicine Allergy Mild Skin Rash Uncoded 04/15/22 06:46 General Stated Complaint: Abd Prob REAGAN: 3 Review of Systems All systems reviewed & are unremarkable except as noted in HPI and below Constitutional Constitutional: Denies chills, Denies fever(s) and Denies weakness Cardiovascular Cardiovascular: Denies chest pain and Denies dyspnea Respiratory Respiratory: Denies cough and Denies dyspnea Gastrointestinal Gastrointestinal: Denies nausea and Denies vomiting Genitourinary Genitourinary: Denies dysuria Musculoskeletal Musculoskeletal: Denies joint swelling Integumentary/Breasts Skin/Breast: Denies rash Neurologic Neurologic: Denies weakness PFSH All Active Problems (Updated 05/09/22 @ 21:22 by Balwinder Baum MD) Abdominal pain (Acute) Diverticulitis (Chronic) LLQ abdominal pain (Acute) Arthritis of both knees (Acute) Greater trochanteric bursitis of both hips (Acute) Lumbar spinal stenosis (Acute) Medical History JOVANI positive Anxiety Atrial fibrillation Brain bleed Breast cancer Chilblains, subsequent encounter Chronic kidney disease Cutaneous lupus erythematosus Gait abnormality GERD (gastroesophageal reflux disease) Graves' disease Hiatal hernia History of closed head injury History of hepatitis HTN (hypertension) Inflammatory arthritis Knee pain, right Osteoarthritis Osteoporosis Post-nasal drip Shoulder pain, left Thalassemia Surgical History H/O shoulder surgery History of bilateral tubal ligation History of bunionectomy History of cataract surgery History of craniotomy History of lumpectomy History of tonsillectomy Hx of cholecystectomy Social History Smoking/Tobacco Use Status: Never Smoking risk assessment performed?: Yes Alcohol Intake: current Alcohol Intake frequency: holidays/special occasions only Drug use: Never Substance use type: does not use Current gender identity: female Do you feel safe at home: Yes Do you feel safe in your relationship?: Yes Exam Const General: no acute distress Orientation: alert HENMT Head: normal to inspection Ears: external ears normal General nose exam: external nose normal Mouth: moist mucous membranes Eyes General: appearance normal, both eyes and all related structures Neck Neck: normal visual inspection Resp Effort & Inspection: normal respiratory effort and able to speak in complete sentences Cardio Rate: regular rate GI Palpation: soft and tender Skin General skin exam: no rashes or lesions noted Neuro General: patient alert and patient oriented x3 Extrem General: normal to inspection Psych Mental Status: mental status grossly normal Course Vital Signs Vital signs: Vital Signs Temperature 36.7 C 05/09/22 18:56 Pulse 72 05/09/22 18:56 Respiratory Rate 18 05/09/22 18:56 Blood Pressure 124/66 05/09/22 18:56 Pulse Oximetry 96 05/09/22 18:56 Temperature 36.7 C 05/09/22 18:56 Temperature Source Skin 05/09/22 18:56 Pulse 72 05/09/22 18:56 Respiratory Rate 18 05/09/22 18:56 Blood Pressure 124/66 05/09/22 18:56 Blood Pressure Position Sitting 05/09/22 18:56 Pulse Oximetry 96 05/09/22 18:56 Oxygen Delivery Method Room Air 05/09/22 18:56 Oxygen Flow Rate 0 05/09/22 18:56
[2022-05-09 19:34] LABS: Abs Immature Grans 0.03 10^3/uL (0.0-0.06); Absolute Basophil Count 0.03 10^3/uL (0.0-0.2); Absolute Eosinophil Count 0.04 10^3/uL (0.0-0.7); Absolute Lymphocyte Count 1.02 10^3/uL (1.2-3.4); Absolute Monocyte Count 0.63 10^3/uL (0.1-0.8); Absolute Neutrophil Count 5.14 10^3/uL (1.2-6.7); Basophils % 0.4; Eosinophils % 0.6; Immature Grans % 0.4; Lymphocytes % 14.8; MCH 25.9 pg (27.0-33.0); MCHC 33.3 % (32.0-36.0); MCV 78 fL (80-95); MPV 10.4 fL (8.0-11.0); Monocytes % 9.1; Neutrophils % 74.7; Platelet Count 340 10^3/uL (130-400); RBC 4.24 10^6/uL (3.93-5.22); RDW 14.2 % (11.7-14.6); RDW-SD 40.2 fL; WBC 6.89 10^3/uL (4.4-10.8)
[2022-05-09 19:38] LABS: Bilirubin Negative (Negative); Blood Negative (Negative); Clarity Clear (Clear); Glucose Negative (Negative); Ketones Negative (Negative); Leukocyte Esterase Trace (Negative); Nitrite Negative (Negative); Urobilinogen 0.2 EU/dL (Up TO 0.2); pH 5.5 (5-8)
[2022-05-09] MEDS: Normal Saline 1,000 ML 1000 ML IV (19:41)
[2022-05-09] MEDS: Ketorolac 15 MG/ML VIAL IVP (19:42)
[2022-05-09 19:47] LABS: Bacteria Few HPF (Negative); C & S Indicated? Yes; Casts Negative LPF (Negative); Crystals Negative HPF (Negative); Epithelial Cells Few HPF (Negative); Mucus Negative (Negative); RBC 0-2 HPF (0-2)
[2022-05-09 19:49] LABS: ALT 20 U/L (14-59); AST 26 U/L (15-37); Alkaline Phosphatase 95 U/L (46-116); Anion Gap 12.5 mmol/L (3-11); BUN 34 mg/dL (7-18); Bilirubin, Total 0.5 mg/dL (0.2-1.0); CO2 20.5 mmol/L (21.0-32.0); CREATININE 1.1 mg/dL (0.55-1.02); Calcium 9.3 mg/dL (8.5-10.1); Chloride 97 mmol/L (98-107); Estimated GFR 50.48 (mL/min/1.73m2); Glucose 100 mg/dL (74-106); Lipase 215 U/L (73-393); Magnesium 1.9 mg/dL (1.8-2.4); PTT Activated 25.9 sec (21.0-27.5); Potassium 4.2 mmol/L (3.5-5.1); Prothrombin Time 9.9 sec (9.3-11.0); Sodium 130 mmol/L (136-145); Total Protein 7.9 g/dL (6.4-8.2)
[2022-05-09] MEDS: Normal Saline - Diluent 50 ML VIAL IJ (20:12)
[2022-05-09] MEDS: Omnipaque 350 MG/ML 100 ML BTL IJ (20:13)
[2022-05-09] MEDS: Normal Saline Flush 10 ML SYR IVP (20:15)
[2022-05-09 20:46] VITALS: BP 144/66; PULSE 68
[2022-05-09 21:02] VITALS: BP 125/58; PULSE 62
--- NOTE | 2022-05-09 21:11 | DI.VRAD_ITS ---
PROCEDURE INFORMATION: Exam: CT Abdomen And Pelvis With Contrast Exam date and time: 05/09/2022 8:15 PM Age: 81 years old Clinical indication: Other: Lower abdominal pain; Prior surgery; Surgery date: 6+ months; Surgery type: Gallbladder surgery, tubal ligation TECHNIQUE: Imaging protocol: Computed tomography of the abdomen and pelvis with contrast. Contrast material: OMNIPAQUE 350; Contrast volume: 100 ml; Contrast route: INTRAVENOUS (IV); COMPARISON: CT ABDOMEN PELVIS W 01/23/2022 10:00 AM FINDINGS: Liver: Simple cyst right lobe of the liver 17 mm . No follow-up imaging recommended . 10 mm low-attenuation area left lobe of the liver 30 Hounsfield units series 4, image 17.. Gallbladder and bile ducts: Cholecystectomy. Intra hepatic ductal dilatation The common duct is prominent. It measures 12.5 millimeters. This may be due to post cholecystectomy state and elderly status. However, if biliary obstruction is suspected clinically, recommend further evaluation. Pancreas: Normal. No ductal dilation. Spleen: Normal. No splenomegaly. Adrenal glands: Normal. No mass. Kidneys and ureters: 17 mm simple cyst left kidney. Smaller cystic structure right kidney Stomach and bowel: Multiple fluid-filled loops of small bowel may represent ileus. Appendix: No evidence of appendicitis. Intraperitoneal space: Unremarkable. No free air. No significant fluid collection. Vasculature: Unremarkable. No abdominal aortic aneurysm. Lymph nodes: Unremarkable. No enlarged lymph nodes. Urinary bladder: Unremarkable as visualized. Reproductive: Unremarkable as visualized. Bones/joints: Significant levoscoliosis of the lumbar spine. Possible lytic lesion T12 Soft tissues: Unremarkable. IMPRESSION: 1. Intra hepatic ductal dilatation The common duct is prominent. It measures 12.5 millimeters. This may be due to post cholecystectomy state and elderly status. However, if biliary obstruction is suspected clinically, recommend further evaluation. 2. 10 mm low-attenuation area left lobe of the liver 30 Hounsfield units series 4, image 17.. 3. Multiple fluid-filled loops of small bowel may represent ileus. Dictated and Authenticated by: Link Sidhu MD. Ordering:GURJIT Britt MD
[2022-05-09 21:16] VITALS: BP 131/67; PULSE 67
[2022-05-09] MEDS: Amoxicillin 875/Clav. 125 TAB PO (21:35)
--- NOTE | 2022-05-11 10:11 | NUR.NOTE ---
Nursing Note: Accessed chart to look up whether or not on antibiotic.
== END 2022-05-09 21:45 | disposition home or self-care (01) ==
PROVIDERS: Emergency Provider Emergency Medicine; PCP Internal Medicine
DX: R10.30 Lower abdominal pain, unspecified (principal); R19.7 Diarrhea, unspecified; R10.813 Right lower quadrant abdominal tenderness; R10.814 Left lower quadrant abdominal tenderness; I12.9 Hypertensive chronic kidney disease with stage 1 through stage 4 chronic kidney disease, or unspecified chronic kidney disease; N18.9 Chronic kidney disease, unspecified; I48.91 Unspecified atrial fibrillation; Z87.19 Personal history of other diseases of the digestive system; Z98.51 Tubal ligation status
CPT/HCPCS: 80053; 83690; 96361; 96374; 99285; 74177; 81003; 81015; 83735; 85025; 85610; 85730; 87086; 99284; J1885; J3490

== ENCOUNTER 2022-07-11 13:11 | Outpatient (REF) | payer MEDICARE, BC, SELFPAY ==
[2022-07-11 20:53] LABS: Abs Immature Grans 0.02 10^3/uL (0.0-0.06); Absolute Basophil Count 0.07 10^3/uL (0.0-0.2); Absolute Eosinophil Count 0.09 10^3/uL (0.0-0.7); Absolute Lymphocyte Count 1.49 10^3/uL (1.2-3.4); Absolute Monocyte Count 0.82 10^3/uL (0.1-0.8); Absolute Neutrophil Count 4.13 10^3/uL (1.2-6.7); Basophils % 1.1; Eosinophils % 1.4; HCT 33.4 % (36.0-46.0); HGB 10.4 g/dL (11.2-15.7); Immature Grans % 0.3; Lymphocytes % 22.5; MCH 24.7 pg (27.0-33.0); MCHC 31.1 % (32.0-36.0); MCV 79 fL (80-95); MPV 11.3 fL (8.0-11.0); Monocytes % 12.4; Neutrophils % 62.3; Platelet Count 315 10^3/uL (130-400); RBC 4.21 10^6/uL (3.93-5.22); RDW 14.4 % (11.7-14.6); RDW-SD 41.1 fL; WBC 6.62 10^3/uL (4.4-10.8)
[2022-07-11 21:19] LABS: ALT 21 U/L (14-59); AST 23 U/L (15-37); Alkaline Phosphatase 86 U/L (46-116); Anion Gap 9.6 mmol/L (3-11); BUN 28 mg/dL (7-18); Bilirubin, Total 0.4 mg/dL (0.2-1.0); CO2 25.4 mmol/L (21.0-32.0); CREATININE 1.2 mg/dL (0.55-1.02); Calcium 9.2 mg/dL (8.5-10.1); Chloride 96 mmol/L (98-107); Estimated GFR 45.48 (mL/min/1.73m2); Glucose 92 mg/dL (74-106); Potassium 4.7 mmol/L (3.5-5.1); Sodium 131 mmol/L (136-145); Total Protein 7.1 g/dL (6.4-8.2)
== END 2022-07-11 13:12 | disposition home or self-care (01) ==
LOC: NCHCN 13:11
PROVIDERS: PCP Internal Medicine; Visit Provider Internal Medicine
DX: Z79.899 Other long term (current) drug therapy (principal); I12.9 Hypertensive chronic kidney disease with stage 1 through stage 4 chronic kidney disease, or unspecified chronic kidney disease; I10 Essential (primary) hypertension
CPT/HCPCS: 80053; 85025

== ENCOUNTER → 2022-07-25 13:32 | Outpatient (BNVA) | payer MEDICARE, BC, SELFPAY | PROVIDERS: PCP Internal Medicine; Referring Provider Internal Medicine | DX: M17.11 Unilateral primary osteoarthritis, right knee (principal); M17.12 Unilateral primary osteoarthritis, left knee | CPT/HCPCS: 20610; J1040 ==

== ENCOUNTER 2022-08-15 16:08 | Outpatient (REF) | payer MEDICARE, BC, SELFPAY ==
[2022-08-15 21:38] LABS: Abs Immature Grans 0.01 10^3/uL (0.0-0.06); Absolute Basophil Count 0.05 10^3/uL (0.0-0.2); Absolute Eosinophil Count 0.09 10^3/uL (0.0-0.7); Absolute Monocyte Count 0.74 10^3/uL (0.1-0.8); Absolute Neutrophil Count 2.99 10^3/uL (1.2-6.7); Eosinophils % 1.7; HCT 31.2 % (36.0-46.0); HGB 10.2 g/dL (11.2-15.7); Immature Grans % 0.2; Lymphocytes % 25.1; MCH 25.4 pg (27.0-33.0); MCHC 32.7 % (32.0-36.0); MCV 78 fL (80-95); MPV 11.5 fL (8.0-11.0); Monocytes % 14.3; Neutrophils % 57.7; Platelet Count 286 10^3/uL (130-400); RBC 4.01 10^6/uL (3.93-5.22); RDW 14.8 % (11.7-14.6); RDW-SD 41.6 fL; WBC 5.18 10^3/uL (4.4-10.8)
[2022-08-15 21:50] LABS: BUN 27 mg/dL (7-18); CREATININE 1.2 mg/dL (0.55-1.02); Calcium 9.1 mg/dL (8.5-10.1); Chloride 100 mmol/L (98-107); Estimated GFR 45.48 (mL/min/1.73m2); Glucose 85 mg/dL (74-106); Potassium 5.6 mmol/L (3.5-5.1); Sodium 134 mmol/L (136-145)
== END 2022-08-15 16:09 | disposition home or self-care (01) ==
LOC: NCHCN 16:08
PROVIDERS: PCP Internal Medicine; Visit Provider Internal Medicine
DX: L93.1 Subacute cutaneous lupus erythematosus (principal); E87.1 Hypo-osmolality and hyponatremia
CPT/HCPCS: 80048; 85025

== ENCOUNTER 2022-09-07 14:03 | Outpatient (REF) | payer MEDICARE, BC, SELFPAY ==
[2022-09-07 21:21] LABS: Abs Immature Grans 0.02 10^3/uL (0.0-0.06); Absolute Basophil Count 0.05 10^3/uL (0.0-0.2); Absolute Eosinophil Count 0.04 10^3/uL (0.0-0.7); Absolute Lymphocyte Count 1.03 10^3/uL (1.2-3.4); Absolute Monocyte Count 0.85 10^3/uL (0.1-0.8); Basophils % 0.7; Eosinophils % 0.6; HCT 30.8 % (36.0-46.0); Immature Grans % 0.3; Lymphocytes % 14.7; MCH 24.9 pg (27.0-33.0); MCHC 32.5 % (32.0-36.0); MCV 77 fL (80-95); Monocytes % 12.2; Neutrophils % 71.5; Platelet Count 314 10^3/uL (130-400); RBC 4.02 10^6/uL (3.93-5.22); RDW 14.7 % (11.7-14.6); RDW-SD 40.4 fL; WBC 6.99 10^3/uL (4.4-10.8)
[2022-09-07 21:34] LABS: ALT 24 U/L (14-59); AST 23 U/L (15-37); Albumin 3.5 g/dL (3.4-5.0); Alkaline Phosphatase 91 U/L (46-116); BUN 30 mg/dL (7-18); Bilirubin, Total 0.2 mg/dL (0.2-1.0); CREATININE 1.3 mg/dL (0.55-1.02); Chloride 99 mmol/L (98-107); Estimated GFR 41.31 (mL/min/1.73m2); Glucose 89 mg/dL (74-106); Potassium 4.7 mmol/L (3.5-5.1); Sodium 136 mmol/L (136-145); Total Protein 6.5 g/dL (6.4-8.2)
== END 2022-09-07 14:04 | disposition home or self-care (01) ==
LOC: NCHCN 14:03
PROVIDERS: PCP Internal Medicine; Visit Provider Internal Medicine
DX: I10 Essential (primary) hypertension (principal); E87.1 Hypo-osmolality and hyponatremia; Z87.19 Personal history of other diseases of the digestive system
CPT/HCPCS: 80053; 85025

== ENCOUNTER 2022-10-25 09:45 | Outpatient (REF) | payer MEDICARE, BC, SELFPAY ==
[2022-10-25 22:04] LABS: HGB 10.6 g/dL (11.2-15.7); MCH 25.4 pg (27.0-33.0); MCHC 32.1 % (32.0-36.0); MCV 79 fL (80-95); MPV 11.5 fL (8.0-11.0); Platelet Count 309 10^3/uL (130-400); RBC 4.17 10^6/uL (3.93-5.22); RDW 14.9 % (11.7-14.6); RDW-SD 42.8 fL; WBC 5.73 10^3/uL (4.4-10.8)
[2022-10-25 22:27] LABS: ALT 18 U/L (14-59); AST 22 U/L (15-37); Alkaline Phosphatase 90 U/L (46-116); Anion Gap 12.1 mmol/L (3-11); BUN 30 mg/dL (7-18); Bilirubin, Total 0.4 mg/dL (0.2-1.0); CO2 23.9 mmol/L (21.0-32.0); CREATININE 1.3 mg/dL (0.55-1.02); Calcium 9.3 mg/dL (8.5-10.1); Chloride 99 mmol/L (98-107); Estimated GFR 41.06 (mL/min/1.73m2); Glucose 81 mg/dL (74-106); Potassium 4.4 mmol/L (3.5-5.1); Sodium 135 mmol/L (136-145)
== END 2022-10-25 09:46 | disposition home or self-care (01) ==
LOC: NCHCN 09:45
PROVIDERS: PCP Internal Medicine; Visit Provider Internal Medicine
DX: Z79.899 Other long term (current) drug therapy (principal)
CPT/HCPCS: 80053; 85027

== ENCOUNTER 2022-11-02 14:41 | Outpatient (CLI) | payer MEDICARE, BC, SELFPAY ==
[2022-11-02 14:50] VITALS: BP 124/66; PULSE 71; RESP 20; TEMP 36.9; O2SAT 98
[2022-11-02 15:23] VITALS: BP 138/63; PULSE 73; RESP 20; O2SAT 100
--- NOTE | 2022-11-02 15:24 | DI.RAD_ITS ---
Exam(s) XR PAIN CLINIC SACRIOILIAC 2V EXAM: XR PAIN CLINIC SACRIOILIAC 2V CLINICAL HISTORY: Dx: Sacroiliac Joint Dysfunction. TECHNIQUE: Fluoroscopy was provided for the referring physician for guidance with performing pain cl inic injection procedure. COMPARISON: No exams were available for comparison FINDINGS: Please see procedure note for details. Fluoro time: 17.5 seconds RADIATION DOSE DELIVERED: Ka,r=2.94 mGy
--- NOTE | 2022-11-02 15:24 | PDOC.PAIN ---
Date of service: 11/02/22 Time of Service: 15:26 Pain Managment Procedure Note Procedure Note Procedure Note: PROCEDURE NOTE RIGHT INTRA-ARTICULAR SACROILIAC JOINT INJECTION Date of Service: November 02, 2022 Patient: Aspen Orozco Provider: Willie Jung DO, MPH COMMENTS: I previously evaluated the patient in the office and their symptoms in relation to the sacroiliac joint pain have remained the same. Pre-operative diagnosis: Sacroiliac joint dysfunction Post-operative diagnosis: Same Pre-procedure pain: VAS= 4/10 Aspen Orozco has been referred to our [facility] for a Right intra-articular Sacroiliac joint injection. Aspen was interviewed and the medical record reviewed. There were no medical, pharmacologic, radiographic or other structural contraindications to attempting a fluoroscopically-guided, contrast-enhanced, intra-articular Sacroiliac joint injection. The risks, benefits, and potential side effects of this procedure were reviewed with the patient. Questions and concerns were addressed. After it was clear that Aspen was fully informed about the procedure, the printed consent form was signed by the patient and myself. Aspen was placed in the prone position on the fluoroscopy table and an automated blood pressure cuff, 3 lead EKG, and pulse oximeter were applied. The skin entry point for approaching the Right sacroiliac joint was identified under the most advantageous fluoroscopic view and marked. Following thorough Chlorhexadine preparation of the skin and draping with sterile surgical drapes, 2 mls of 1% lidocaine was infiltrated into the skin at the entry point and the surrounding subcutaneous tissues. Next, a 3.5 22G spinal needle was placed under fluoroscopic guidance into the Right sacroiliac joint. Intra-articular placement was confirmed by a clear arthrogram resulting from the injection of 0.25ml of Omnipaque-240. Next, 1 ml of Depo- Medrol 40 mg/ml was injected intra-articularly with an initial reproduction of a significant component of the usual pain. This was followed with 1 ml of 1% Lidocaine. The needle was then removed without difficulty. (49 ml of Omnipaque-240 was wasted). Aspen's vital signs were stable throughout the procedure and were as recorded in nursing records. Follow up plans and appointments were discussed with Aspen. Post procedure instructions were given as documented in nursing records. Having met discharge criteria, Aspen was discharged from the [facility]. COMMENTS: Post-procedure pain: VAS= 2/10. If the patient receives at least 50% improvement in pain and/or function for at least 3 months, this procedure can be repeated if needed. I personally performed this entire procedure. WILLIE JUNG DO, MPH ABPMR-subspecialty board certification in Pain Medicine [facility] [facility]
[2022-11-02] MEDS: Omnipaque 240 MG/ML 50 ML BTL IJ (15:28)
[2022-11-02] MEDS: methylPREDNISolone ACETATE 80 MG/ML VIAL IJ (15:28)
== END 2022-11-02 14:42 | disposition home or self-care (01) ==
LOC: PC 14:41
PROVIDERS: PCP Internal Medicine; Visit Provider Preventive Medicine Occupational Medicine
DX: M46.1 Sacroiliitis, not elsewhere classified (principal); M54.50 Low back pain, unspecified
CPT/HCPCS: 27096; 72200; J1040; Q9967

== ENCOUNTER 2023-02-08 15:44 | Outpatient (REF) | payer MEDICARE, BC, SELFPAY ==
[2023-02-08 15:53] LABS: HCT 32.3 % (36.0-46.0); HGB 10.5 g/dL (11.2-15.7); MCH 25.3 pg (27.0-33.0); MCHC 32.5 % (32.0-36.0); MCV 78 fL (80-95); MPV 11.1 fL (8.0-11.0); Platelet Count 297 10^3/uL (130-400); RBC 4.15 10^6/uL (3.93-5.22); RDW 14.7 % (11.7-14.6); RDW-SD 41.3 fL; WBC 5.72 10^3/uL (4.4-10.8)
[2023-02-08 16:11] LABS: ALT 23 U/L (14-59); AST 20 U/L (15-37); Albumin 3.5 g/dL (3.4-5.0); Alkaline Phosphatase 85 U/L (46-116); Anion Gap 11.1 mmol/L (3-11); BUN 25 mg/dL (7-18); Bilirubin, Total 0.2 mg/dL (0.2-1.0); CO2 20.9 mmol/L (21.0-32.0); CREATININE 1.2 mg/dL (0.55-1.02); Calcium 9.1 mg/dL (8.5-10.1); Chloride 99 mmol/L (98-107); Estimated GFR 45.19 (mL/min/1.73m2); Glucose 104 mg/dL (74-106); Potassium 4.6 mmol/L (3.5-5.1); Sodium 131 mmol/L (136-145); TSH 1.84 uIU/mL (0.36-3.74); Total Protein 6.6 g/dL (6.4-8.2)
== END 2023-02-08 15:45 | disposition home or self-care (01) ==
LOC: NCHCN 15:44
PROVIDERS: PCP Internal Medicine; Visit Provider Internal Medicine
DX: Z79.899 Other long term (current) drug therapy (principal); E03.9 Hypothyroidism, unspecified
CPT/HCPCS: 80053; 85027; 84443

== ENCOUNTER 2023-05-11 10:00 | Outpatient (CLI) | payer MEDICARE, BC, SELFPAY ==
[2023-05-11 11:18] VITALS: PULSE 72; O2SAT 99
--- NOTE | 2023-05-11 11:20 | PDOC.PAIN_ITS ---
Date of service: 05/11/23 Time of Service: 11:20 US Guided Injections Type of Ultrasound Guided Injection: Right Gluteus medius muscle Buttock Trigger Point Injection Pre-Procedural Evaluation TTP at the right gluteus medius Referral Patient has been referred to the Pain Management Center for Right Gluteus minimus muscle Buttock Trigger Point Injection for a chief complaint of Right lateral hip pain Pre-Procedural Pain Score Pre-procedural pain score: 5/10 Reason for Exam Trigger point injection Patient Interview Patient was interviewed and medical record reviewed: Yes There were no contraindications to performing an US guided procedure. Risks,expected side effects, potential benefits were reviewed. The patient consent form was signed and witnessed. Patient Safety No skin abnormalities at the injection site. Procedure Description No sedation given for procedure Patient was placed in the left lateral recumbent position and the following Pulse Ox applied. Pre-Procedure ultrasound scanning performed using a Linear 9 MHz probe Site Preparation Chloroprep and draps Local Anesthesia of Lidocaine 2%. A 21 G 3.5 Pajunk ultrasound needle was placed under live US guidance using an in-plane approach to the target area. After visualization of the needle tip at the target area Depo-Medrol 40mg per cc (40 mg) and Lidocaine 2% (5cc) were used. Negative aspiration for blood. [place] were removed without difficulty. Ultrasound images were captured and stored. Patient Mental Status Patient was alert and awake during procedure Vital Signs Vital signs were stable throughout the procedure and recorded by nursing. Follow Up/Discharge Follow up plans and appointments were discussed with patient. Post procedure instruction was given as documented in nursing documentation. Discharge criteria met and patient discharged from Pain Management Center: Yes Post Procedure Pain Post Procedure Pain: 0/10 Patient tolerated procedure well and No complications Procedure Outcome: Successful Trigger Point Injection 1-2 muscles Non US Guided Injections Procedure Description Patient was placed in the left lateral recumbent position Post Procedure Pain Post Procedure Pain: 0/10
[2023-05-11] MEDS: Lidocaine 2% Pres-Free 5 ML VIAL IJ (11:22)
[2023-05-11] MEDS: methylPREDNISolone ACETATE 40 MG/ML VIAL IJ (11:23)
== END 2023-05-11 10:01 | disposition home or self-care (01) ==
LOC: PC 10:01
PROVIDERS: PCP Internal Medicine; Visit Provider Preventive Medicine Occupational Medicine
DX: M79.18 Myalgia, other site (principal); M54.50 Low back pain, unspecified
CPT/HCPCS: 00123; 20552; 76942; J1030

== ENCOUNTER 2023-05-29 18:24 | Outpatient (REF) | payer MEDICARE, BC, SELFPAY ==
[2023-05-29 21:50] LABS: Abs Immature Grans 0.01 10^3/uL (0.0-0.06); Absolute Basophil Count 0.05 10^3/uL (0.0-0.2); Absolute Eosinophil Count 0.09 10^3/uL (0.0-0.7); Absolute Lymphocyte Count 1.38 10^3/uL (1.2-3.4); Absolute Monocyte Count 0.64 10^3/uL (0.1-0.8); Absolute Neutrophil Count 4.28 10^3/uL (1.2-6.7); Basophils % 0.8; Eosinophils % 1.4; HCT 33.2 % (36.0-46.0); HGB 10.6 g/dL (11.2-15.7); Immature Grans % 0.2; Lymphocytes % 21.4; MCH 25.1 pg (27.0-33.0); MCHC 31.9 % (32.0-36.0); MCV 79 fL (80-95); MPV 11.7 fL (8.0-11.0); Monocytes % 9.9; Neutrophils % 66.3; Platelet Count 236 10^3/uL (130-400); RBC 4.23 10^6/uL (3.93-5.22); RDW 14.9 % (11.7-14.6); RDW-SD 42.6 fL; WBC 6.45 10^3/uL (4.4-10.8)
[2023-05-29 22:03] LABS: ALT 21 U/L (14-59); AST 21 U/L (15-37); Albumin 3.4 g/dL (3.4-5.0); Alkaline Phosphatase 83 U/L (46-116); Anion Gap 8.9 mmol/L (3-11); BUN 30 mg/dL (7-18); Bilirubin, Total 0.3 mg/dL (0.2-1.0); CO2 25.1 mmol/L (21.0-32.0); CREATININE 1.1 mg/dL (0.55-1.02); Calcium 8.7 mg/dL (8.5-10.1); Chloride 102 mmol/L (98-107); Estimated GFR 50.17 (mL/min/1.73m2); Glucose 78 mg/dL (74-106); Potassium 4.3 mmol/L (3.5-5.1); Sodium 136 mmol/L (136-145); Total Protein 6.3 g/dL (6.4-8.2)
== END 2023-05-29 18:25 | disposition home or self-care (01) ==
LOC: NCHCN 18:24
PROVIDERS: PCP Internal Medicine; Visit Provider Internal Medicine
DX: I10 Essential (primary) hypertension (principal); E03.9 Hypothyroidism, unspecified; Z79.899 Other long term (current) drug therapy
CPT/HCPCS: 80053; 85025

== ENCOUNTER 2023-06-19 18:29 | Outpatient (REF) | payer MEDICARE, BC, SELFPAY ==
[2023-06-19 21:18] LABS: Abs Immature Grans 0.01 10^3/uL (0.0-0.06); Absolute Basophil Count 0.06 10^3/uL (0.0-0.2); Absolute Eosinophil Count 0.05 10^3/uL (0.0-0.7); Absolute Lymphocyte Count 1.26 10^3/uL (1.2-3.4); Absolute Neutrophil Count 3.85 10^3/uL (1.2-6.7); Eosinophils % 0.9; HCT 35.5 % (36.0-46.0); HGB 11.7 g/dL (11.2-15.7); Immature Grans % 0.2; Lymphocytes % 21.6; MCH 25.4 pg (27.0-33.0); MCV 77 fL (80-95); Monocytes % 10.3; Platelet Count 301 10^3/uL (130-400); RBC 4.61 10^6/uL (3.93-5.22); RDW 14.9 % (11.7-14.6); RDW-SD 40.7 fL; WBC 5.83 10^3/uL (4.4-10.8)
[2023-06-19 21:20] LABS: ESR 6 mm/hr (0-30)
[2023-06-19 22:35] LABS: ALT 19 U/L (14-59); AST 28 U/L (15-37); Albumin 3.8 g/dL (3.4-5.0); Alkaline Phosphatase 94 U/L (46-116); Anion Gap 11.6 mmol/L (3-11); BUN 32 mg/dL (7-18); Bilirubin, Total 0.3 mg/dL (0.2-1.0); CO2 23.4 mmol/L (21.0-32.0); CREATININE 1.2 mg/dL (0.55-1.02); Calcium 9.5 mg/dL (8.5-10.1); Chloride 102 mmol/L (98-107); Estimated GFR 45.19 (mL/min/1.73m2); Glucose 87 mg/dL (74-106); Potassium 4.6 mmol/L (3.5-5.1); Sodium 137 mmol/L (136-145); Total Protein 7.2 g/dL (6.4-8.2)
== END 2023-06-19 18:30 | disposition home or self-care (01) ==
LOC: NCHCN 18:29
PROVIDERS: PCP Internal Medicine; Visit Provider Family Medicine
DX: R51.9 Headache, unspecified (principal)
CPT/HCPCS: 80053; 85652; 85025

== ENCOUNTER 2023-08-15 15:15 | Outpatient (REF) | payer MEDICARE, BC, SELFPAY ==
[2023-08-15 14:40] LABS: Abs Immature Grans 0.01 10^3/uL (0.0-0.06); Absolute Basophil Count 0.06 10^3/uL (0.0-0.2); Absolute Eosinophil Count 0.11 10^3/uL (0.0-0.7); Absolute Lymphocyte Count 0.94 10^3/uL (1.2-3.4); Absolute Monocyte Count 0.54 10^3/uL (0.1-0.8); Absolute Neutrophil Count 3.28 10^3/uL (1.2-6.7); Basophils % 1.2; Eosinophils % 2.2; HGB 11.5 g/dL (11.2-15.7); Immature Grans % 0.2; MCH 24.9 pg (27.0-33.0); MCHC 31.9 % (32.0-36.0); MCV 78 fL (80-95); MPV 11.4 fL (8.0-11.0); Monocytes % 10.9; Neutrophils % 66.5; Platelet Count 298 10^3/uL (130-400); RBC 4.61 10^6/uL (3.93-5.22); RDW 14.8 % (11.7-14.6); RDW-SD 41.3 fL; WBC 4.94 10^3/uL (4.4-10.8)
[2023-08-15 14:54] LABS: ALT 22 U/L (14-59); AST 22 U/L (15-37); Albumin 3.8 g/dL (3.4-5.0); Alkaline Phosphatase 96 U/L (46-116); Anion Gap 11.2 mmol/L (3-11); BUN 27 mg/dL (7-18); Bilirubin, Total 0.4 mg/dL (0.2-1.0); CO2 21.8 mmol/L (21.0-32.0); CREATININE 1.1 mg/dL (0.55-1.02); Calcium 8.7 mg/dL (8.5-10.1); Chloride 104 mmol/L (98-107); Estimated GFR 50.17 (mL/min/1.73m2); Glucose 84 mg/dL (74-106); Potassium 4.8 mmol/L (3.5-5.1); Sodium 137 mmol/L (136-145); Total Protein 6.9 g/dL (6.4-8.2)
== END 2023-08-15 15:16 | disposition home or self-care (01) ==
LOC: NCHCN 15:15
PROVIDERS: PCP Internal Medicine; Visit Provider Family Medicine
DX: R55 Syncope and collapse (principal)
CPT/HCPCS: 80053; 85025

== ENCOUNTER 2023-08-24 10:38 | Outpatient (CLI) | payer MEDICARE, BC, SELFPAY | END 2023-08-24 10:39 | disposition home or self-care (01) | PROVIDERS: PCP Internal Medicine; Visit Provider Family Medicine | DX: R55 Syncope and collapse (principal) | CPT/HCPCS: 93246 ==

== ENCOUNTER 2023-09-12 13:46 | Outpatient (CLI) | payer MEDICARE, BC, SELFPAY ==
--- NOTE | 2023-09-12 14:44 | W.CARDEVENT ---
Date of service: 09/12/23 Time of Service: 14:44 Cardiac Event Recorder Referring Provider:: Romulo Smith Indications:: syncope Cardiac Event Note: This is a cardiac event monitor. Patient was monitored for 11 days and 13 hours Rhythm throughout was sinus with an average heart rate of 64. Minimum was 48, maximum 112 There were very rare isolated ventricular ectopic beats There were rare atrial premature beats. There were several brief self-limited atrial runs, all asymptomatic, generally 3-4 beats in length There was no atrial fibrillation, no high-grade AV block, no pauses greater than 3 seconds Patient's symptoms were reported which correlated with sinus rhythm
== END 2023-09-12 13:47 | disposition home or self-care (01) ==
LOC: CARDOPNVT 13:46
PROVIDERS: PCP Internal Medicine; Visit Provider Internal Medicine Cardiovascular Disease
DX: R55 Syncope and collapse (principal); I49.1 Atrial premature depolarization
CPT/HCPCS: 93248

== ENCOUNTER 2023-09-14 12:07 | Outpatient (REF) | payer MEDICARE, BC, SELFPAY ==
[2023-09-14 15:37] LABS: Abs Immature Grans 0.01 10^3/uL (0.0-0.06); Absolute Basophil Count 0.05 10^3/uL (0.0-0.2); Absolute Eosinophil Count 0.14 10^3/uL (0.0-0.7); Absolute Lymphocyte Count 1.13 10^3/uL (1.2-3.4); Absolute Monocyte Count 0.37 10^3/uL (0.1-0.8); Basophils % 1.1 %; HCT 35.1 % (36.0-46.0); HGB 11.1 g/dL (11.2-15.7); Immature Grans % 0.2 %; MCH 24.6 pg (27.0-33.0); MCHC 31.6 % (32.0-36.0); MCV 78 fL (80-95); MPV 11.2 fL (8.0-11.0); Monocytes % 7.9 %; Neutrophils % 63.8 %; Platelet Count 274 10^3/uL (130-400); RBC 4.51 10^6/uL (3.93-5.22); RDW-SD 41.9 fL
[2023-09-14 15:48] LABS: ALT 22 U/L (14-59); AST 22 U/L (15-37); Albumin 3.7 g/dL (3.4-5.0); Alkaline Phosphatase 96 U/L (46-116); Anion Gap 10.6 mmol/L (3-11); BUN 33 mg/dL (7-18); Bilirubin, Total 0.4 mg/dL (0.2-1.0); CO2 24.4 mmol/L (21.0-32.0); CREATININE 1.2 mg/dL (0.55-1.02); Calcium 8.8 mg/dL (8.5-10.1); Chloride 104 mmol/L (98-107); Estimated GFR 45.19 (mL/min/1.73m2); Glucose 92 mg/dL (74-106); Potassium 4.2 mmol/L (3.5-5.1); Sodium 139 mmol/L (136-145); Total Protein 6.7 g/dL (6.4-8.2)
== END 2023-09-14 12:08 | disposition home or self-care (01) ==
LOC: NCHCN 12:07
PROVIDERS: PCP Family Medicine; Visit Provider Family Medicine
DX: Z79.899 Other long term (current) drug therapy (principal)
CPT/HCPCS: 80053; 85025

== ENCOUNTER 2023-09-27 09:58 | Outpatient (CLI) | payer MEDICARE, BC, SELFPAY ==
[2023-09-27 10:09] VITALS: BP 140/83; PULSE 74; RESP 20; TEMP 36.7; O2SAT 98
--- NOTE | 2023-09-27 10:49 | PDOC.PAIN ---
Date of service: 09/27/23 Time of Service: 10:49 US Guided Injections Type of Ultrasound Guided Injection: Right Piriformis Injection Pre-Procedural Evaluation Pain to the right buttock and this is running to the back of the right thigh Referral Patient has been referred to the Pain Management Center for Right Piriformis Injection for a chief complaint of Right buttock and right posterior thigh pain Pre-Procedural Pain Score Pre-procedural pain score: 6/10 Reason for Exam Right buttock pain Patient Interview Patient was interviewed and medical record reviewed: Yes There were no contraindications to performing an US guided procedure. Risks,expected side effects, potential benefits were reviewed. The patient consent form was signed and witnessed. Standard time out procedure was performed. Patient Safety No skin issues at the injection site. Procedure Description No sedation given for procedure Patient was placed in the prone position and the following Pulse Ox applied. Pre-Procedure ultrasound scanning performed using a Linear 9 MHz probe Site Preparation Chloroprep with a 3 minute wait time Local Anesthesia Skin and subcutaneous tissues anesthetized with: 2 mL of Lidocaine 2%. A 21 G 3.5 Pajunk ultrasound needle was placed under live US guidance using an in-plane approach to the target area. After visualization of the needle tip at the target area Depo-Medrol 40mg per cc and Lidocaine 2% were used. Total of Injectate/Medication Note: 1 cc of Depomedrol followed by 3 cc of 2% Lidocaine. Negative aspiration for blood. [place] were removed without difficulty. Ultrasound images were captured and stored. Patient Mental Status Patient was alert during procedure Vital Signs Vital signs were stable throughout the procedure and recorded by nursing. Follow Up/Discharge Follow up plans and appointments were discussed with patient. Post procedure instruction was given as documented in nursing documentation. Discharge criteria met and patient discharged from Pain Management Center: Yes Post Procedure Pain Post Procedure Pain: 4/10 Patient tolerated procedure well Procedure Outcome: Successful Piriformis Injection Non US Guided Injections Procedure Description Patient was placed in the prone position Post Procedure Pain Post Procedure Pain: 4/10
[2023-09-27 10:54] VITALS: PULSE 64; O2SAT 99
[2023-09-27] MEDS: Lidocaine 2% Pres-Free 5 ML VIAL IJ (10:55)
[2023-09-27] MEDS: Nerve Block Tray 1 EACH MC (10:55)
[2023-09-27] MEDS: methylPREDNISolone ACETATE 40 MG/ML VIAL IJ (10:55)
== END 2023-09-27 09:59 | disposition home or self-care (01) ==
LOC: PC 09:58
PROVIDERS: PCP Family Medicine; Visit Provider Preventive Medicine Occupational Medicine
DX: M79.18 Myalgia, other site
CPT/HCPCS: 20552; J1010

== ENCOUNTER 2023-10-19 08:27 | Outpatient (CLI) | payer MEDICARE, BC, SELFPAY ==
--- NOTE | 2023-10-19 08:15 | RT.EKG_ITS ---
APPROVED REPORT Exam: Resting ECG Reason for Exam: PAF Patient Location: O HR:66 bpm ECG Measurements Heart Rate 66 AXIS MI 228 P 60 QRSd 121 QRS -22 QT 435 T 7 QTc 456 Conclusion Sinus rhythm...normal P axis, V-rate 50- 99 Borderline prolonged MI interval...MI >220, V-rate 50- 90
== END 2023-10-19 08:28 | disposition home or self-care (01) ==
LOC: DI.CARD 08:31
PROVIDERS: PCP Family Medicine; Visit Provider Internal Medicine Cardiovascular Disease
DX: I48.91 Unspecified atrial fibrillation (principal)
CPT/HCPCS: 93010

== ENCOUNTER → 2023-10-19 13:50 | Outpatient (BNVA) | payer MEDICARE, BC, SELFPAY | PROVIDERS: PCP Family Medicine; Referring Provider Family Medicine; Visit Provider Internal Medicine Cardiovascular Disease | DX: I48.0 Paroxysmal atrial fibrillation (principal); R55 Syncope and collapse; I44.0 Atrioventricular block, first degree | CPT/HCPCS: 93005; 99214 ==

== ENCOUNTER 2024-01-11 10:19 | Outpatient (CLI) | payer MEDICARE, BC, SELFPAY ==
[2024-01-11] VITALS (9 sets, daily range): BP systolic 166–227; BP diastolic 68–106; PULSE 60–68; RESP 8–18; TEMP 36.7; O2SAT 98–100
--- NOTE | 2024-01-11 11:14 | PDOC.PAIN_ITS ---
Date of service: 01/11/24 Time of Service: 11:14 Pain Managment Procedure Note Procedure Note Procedure Note: PROCEDURE NOTE RIGHT INTRA-ARTICULAR SACROILIAC JOINT INJECTION Date of Service: January 11, 2024 Patient: Aspen Orozco Provider: Willie Jung DO, MPH COMMENTS: I previously evaluated the patient in the office and their symptoms in relation to the sacroiliac joint pain have remained the same. She last had this procedure on 11/02/22 with 10+ months of >50% pain improvement. Pre-operative diagnosis: Sacroiliac joint dysfunction Post-operative diagnosis: Same Pre-procedure pain: VAS= 4/10 Aspen Orozco has been referred to our [facility] for a Right intra-articular Sacroiliac joint injection. Aspen was interviewed and the medical record reviewed. There were no medical, pharmacologic, radiographic or other structural contraindications to attempting a fluoroscopically-guided, contrast-enhanced, intra-articular Sacroiliac joint injection. The risks, benefits, and potential side effects of this procedure were reviewed with the patient. Questions and concerns were addressed. After it was clear that Aspen was fully informed about the procedure, the printed consent form was signed by the patient and myself. Aspen was placed in the prone position on the fluoroscopy table and an automated blood pressure cuff, 3 lead EKG, and pulse oximeter were applied. The skin entry point for approaching the Right sacroiliac joint was identified under the most advantageous fluoroscopic view and marked. Following thorough Chlorhexadine preparation of the skin and draping with sterile surgical drapes, 2 mls of 1% lidocaine was infiltrated into the skin at the entry point and the surrounding subcutaneous tissues. Next, a 3.5 22G spinal needle was placed under fluoroscopic guidance into the Right sacroiliac joint. Intra-articular placement was confirmed by a clear arthrogram resulting from the injection of 0.25ml of Omnipaque-240. Next, 1 ml of Depo- Medrol 80 mg/ml was injected intra- articularly with an initial reproduction of a significant component of the usual pain. This was followed with 1 ml of 1% Lidocaine. The needle was then removed without difficulty. (49 ml of Omnipaque-240 was wasted). Aspen's vital signs were stable throughout the procedure and were as recorded in nursing records. Follow up plans and appointments were discussed with Aspen. Post procedure instructions were given as documented in nursing records. Having met discharge criteria, Aspen was discharged from the [facility]. COMMENTS: Post-procedure pain: VAS= 2/10. If the patient receives at least 50% improvement in pain and/or function for at least 3 months, this procedure can be repeated if needed. Her blood pressure was slightly elevated before and during the procedure. She denies any new headaches or dizziness. I personally performed this entire procedure. WILLIE JUNG DO, MPH ABPMR-subspecialty board certification in Pain Medicine [facility] [facility]
--- NOTE | 2024-01-11 11:15 | DI.RAD_ITS ---
Exam(s) XR PAIN CLINIC SACRIOILIAC 2V EXAM: XR PAIN CLINIC SACRIOILIAC 2V CLINICAL HISTORY: DX: Sacroiliac Joint Dysfunction. TECHNIQUE: Fluoroscopy was provided for the referring physician for guidance with performing pain cl inic injection procedure. COMPARISON: No exams were available for comparison FINDINGS: Please see procedure note for details. Fluoro time: 17.2 seconds RADIATION DOSE DELIVERED: Ka,r=3.30 mGy
[2024-01-11] MEDS: Nerve Block Tray 1 EACH MC (11:27)
[2024-01-11] MEDS: methylPREDNISolone ACETATE 80 MG/ML VIAL IJ (11:27)
[2024-01-11] MEDS: Omnipaque 240 MG/ML 50 ML BTL IJ (11:27)
== END 2024-01-11 10:20 | disposition home or self-care (01) ==
LOC: PC 10:19
PROVIDERS: PCP Family Medicine; Visit Provider Preventive Medicine Occupational Medicine
DX: M53.3 Sacrococcygeal disorders, not elsewhere classified; M54.50 Low back pain, unspecified
CPT/HCPCS: 27096; 72200; J1010; Q9967

== ENCOUNTER 2024-01-19 15:18 | Outpatient (REF) | payer MEDICARE, BC, SELFPAY ==
[2024-01-19 21:12] LABS: Abs Immature Grans 0.02 10^3/uL (0.0-0.06); Absolute Basophil Count 0.06 10^3/uL (0.0-0.2); Absolute Eosinophil Count 0.08 10^3/uL (0.0-0.7); Absolute Lymphocyte Count 1.26 10^3/uL (1.2-3.4); Absolute Monocyte Count 0.62 10^3/uL (0.1-0.8); Absolute Neutrophil Count 4.59 10^3/uL (1.2-6.7); Basophils % 0.9 %; Eosinophils % 1.2 %; HCT 34.6 % (36.0-46.0); HGB 10.7 g/dL (11.2-15.7); Immature Grans % 0.3 %; MCH 25.1 pg (27.0-33.0); MCHC 30.9 % (32.0-36.0); MCV 81 fL (80-95); MPV 11.3 fL (8.0-11.0); Monocytes % 9.4 %; Neutrophils % 69.2 %; Platelet Count 283 10^3/uL (130-400); RBC 4.27 10^6/uL (3.93-5.22); RDW 15.5 % (11.7-14.6); RDW-SD 45.4 fL; WBC 6.63 10^3/uL (4.4-10.8)
[2024-01-19 21:22] LABS: ALT 21 U/L (14-59); AST 24 U/L (15-37); Albumin 3.7 g/dL (3.4-5.0); Alkaline Phosphatase 102 U/L (46-116); Anion Gap 10.9 mmol/L (3-11); BUN 32 mg/dL (7-18); Bilirubin, Total 0.52 mg/dL (0.2-1.0); CO2 24.1 mmol/L (21.0-32.0); CREATININE 1.4 mg/dL (0.55-1.02); Calcium 9.1 mg/dL (8.5-10.1); Chloride 99 mmol/L (98-107); Estimated GFR 37.33 (mL/min/1.73m2); Glucose 105 mg/dL (74-106); Potassium 4.7 mmol/L (3.5-5.1); Sodium 134 mmol/L (136-145); Total Protein 6.8 g/dL (6.4-8.2)
== END 2024-01-19 15:19 | disposition home or self-care (01) ==
LOC: LBN 15:18
PROVIDERS: PCP Family Medicine; Visit Provider Dermatology
DX: Z79.899 Other long term (current) drug therapy (principal); M35.1 Other overlap syndromes
CPT/HCPCS: 80053; 85025

== ENCOUNTER → 2024-03-04 10:18 | Outpatient (BNVA) | payer MEDICARE, BC, SELFPAY | PROVIDERS: PCP Family Medicine; Referring Provider Family Medicine; Visit Provider Student in an Organized Health Care Education/Training Program | DX: M70.61 Trochanteric bursitis, right hip (principal) | CPT/HCPCS: 20610; J1010 ==

== ENCOUNTER 2024-05-07 17:05 | Outpatient (REF) | payer MEDICARE, BC, SELFPAY ==
[2024-05-07 15:53] LABS: Abs Immature Grans 0.02 10^3/uL (0.0-0.06); Absolute Basophil Count 0.08 10^3/uL (0.0-0.2); Absolute Eosinophil Count 0.07 10^3/uL (0.0-0.7); Absolute Lymphocyte Count 1.12 10^3/uL (1.2-3.4); Absolute Monocyte Count 0.56 10^3/uL (0.1-0.8); Absolute Neutrophil Count 4.22 10^3/uL (1.2-6.7); Basophils % 1.3 %; Eosinophils % 1.2 %; HCT 32.4 % (36.0-46.0); HGB 10.6 g/dL (11.2-15.7); Immature Grans % 0.3 %; Lymphocytes % 18.5 %; MCH 25.5 pg (27.0-33.0); MCHC 32.7 % (32.0-36.0); MCV 78 fL (80-95); MPV 11.3 fL (8.0-11.0); Monocytes % 9.2 %; Neutrophils % 69.5 %; Platelet Count 308 10^3/uL (130-400); RBC 4.15 10^6/uL (3.93-5.22); RDW 14.9 % (11.7-14.6); RDW-SD 41.9 fL; WBC 6.07 10^3/uL (4.4-10.8)
[2024-05-07 16:11] LABS: ALT 17 U/L (14-59); AST 23 U/L (15-37); Albumin 3.8 g/dL (3.4-5.0); Alkaline Phosphatase 110 U/L (46-116); Anion Gap 9.8 mmol/L (3-11); BUN 33 mg/dL (7-18); Bilirubin, Total 0.35 mg/dL (0.2-1.0); CO2 26.2 mmol/L (21.0-32.0); CREATININE 1.3 mg/dL (0.55-1.02); Calcium 9.2 mg/dL (8.5-10.1); Chloride 102 mmol/L (98-107); Glucose 82 mg/dL (74-106); Potassium 4.5 mmol/L (3.5-5.1); Sodium 138 mmol/L (136-145); Total Protein 6.8 g/dL (6.4-8.2)
== END 2024-05-07 17:06 | disposition home or self-care (01) ==
LOC: NCHCN 17:05
PROVIDERS: PCP Family Medicine; Visit Provider Family Medicine
DX: M35.1 Other overlap syndromes (principal); Z79.899 Other long term (current) drug therapy
CPT/HCPCS: 80053; 85025

== ENCOUNTER 2024-05-08 12:03 | Outpatient (CLI) | payer MEDICARE, BC, SELFPAY ==
[2024-05-08] VITALS (7 sets, daily range): BP systolic 153–215; BP diastolic 79–95; PULSE 62–67; RESP 8–20; TEMP 36.7; O2SAT 100
--- NOTE | 2024-05-08 12:44 | PDOC.PAIN ---
Date of service: 05/08/24 Time of Service: 12:44 Pain Managment Procedure Note Procedure Note Procedure Note: PROCEDURE NOTE RIGHT INTRA-ARTICULAR SACROILIAC JOINT INJECTION Date of Service: May 08, 2024 Patient: Aspen Orozco Provider: Willie Jung DO, MPH COMMENTS: I previously evaluated the patient in the office and their symptoms in relation to the sacroiliac joint pain have remained the same. She last had this procedure on 01/11/24 and had >3 months of >50% pain relief. 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 Aspen was interviewed and the medical record reviewed. There were no medical, pharmacologic, radiographic or other structural contraindications to attempting a fluoroscopically-guided, contrast-enhanced, intra-articular Sacroiliac joint injection. The risks, benefits, and potential side effects of this procedure were reviewed with the patient. Questions and concerns were addressed. After it was clear that Aspen was fully informed about the procedure, the printed consent form was signed by the patient and myself. Aspen was placed in the prone position on the fluoroscopy table and an automated blood pressure cuff, 3 lead EKG, and pulse oximeter were applied. The skin entry point for approaching the Right sacroiliac joint was identified under the most advantageous fluoroscopic view and marked. Following thorough Chlorhexadine preparation of the skin and draping with sterile surgical drapes, 2 mls of 1% lidocaine was infiltrated into the skin at the entry point and the surrounding subcutaneous tissues. Next, a 3.5 22G spinal needle was placed under fluoroscopic guidance into the Right sacroiliac joint. Intra-articular placement was confirmed by a clear arthrogram resulting from the injection of 0.25ml of Omnipaque-240. Next, 1 ml of Depo- Medrol 80 mg/ml was injected intra-articularly with an initial reproduction of a significant component of the usual pain. This was followed with 1 ml of 1% Lidocaine. The needle was then removed without difficulty. (49 ml of Omnipaque-240 was wasted). Aspen's vital signs were stable throughout the procedure and were as recorded in nursing records. Follow up plans and appointments were discussed with Aspen. Post procedure instructions were given as documented in nursing records. Having met discharge criteria, Aspen was [facility] the [facility] COMMENTS: Post-procedure pain: VAS= 2/10. If the patient receives at least 50% improvement in pain and/or function for at least 3 months, this procedure can be repeated if needed. I personally performed this entire procedure. WILLIE JUNG DO, MPH ABPMR-subspecialty board certification in Pain Medicine [facility]
--- NOTE | 2024-05-08 12:46 | DI.RAD_ITS ---
Exam(s) XR PAIN CLINIC SACRIOILIAC 2V EXAM: XR PAIN CLINIC SACRIOILIAC 2V CLINICAL HISTORY: DX: Sacroiliac Dysfunction TECHNIQUE: 2D and realtime digital imaging was performed. CONTRAST MATERIAL: Refer to procedure report. COMPARISON: No exams were available for comparison FINDINGS: Fluoroscopy was provided for Dr. Salinas during the performance of a right sacroiliac joint injection. Please refer to the procedure report for complete details. Ka,r=3.69 mGy IMPRESSION: RADIATION DOSE DELIVERED: 0.0 0.0 0
[2024-05-08] MEDS: Nerve Block Tray 1 EACH MC (12:55)
[2024-05-08] MEDS: Omnipaque 240 MG/ML 50 ML BTL IJ (12:55)
[2024-05-08] MEDS: methylPREDNISolone ACETATE 80 MG/ML VIAL IJ (12:55)
== END 2024-05-08 12:04 | disposition home or self-care (01) ==
LOC: PC 12:03
PROVIDERS: PCP Family Medicine; Visit Provider Preventive Medicine Occupational Medicine
DX: M54.50 Low back pain, unspecified (principal); M53.3 Sacrococcygeal disorders, not elsewhere classified
CPT/HCPCS: 27096; 72200; J1010; Q9967

== ENCOUNTER 2024-05-27 15:12 | Outpatient (REF) | payer MEDICARE, BC, SELFPAY ==
[2024-05-27 21:38] LABS: TSH (W/Ref FT4) 3.28 uIU/mL (0.36-3.74)
== END 2024-05-27 15:13 | disposition home or self-care (01) ==
LOC: NCHCN 15:12
PROVIDERS: PCP Family Medicine; Visit Provider Family Medicine
DX: E03.9 Hypothyroidism, unspecified (principal)
CPT/HCPCS: 84443

== ENCOUNTER → 2024-06-03 10:25 | Outpatient (BNVA) | payer MEDICARE, BC, SELFPAY | PROVIDERS: PCP Family Medicine; Referring Provider Family Medicine; Visit Provider Student in an Organized Health Care Education/Training Program | DX: M70.61 Trochanteric bursitis, right hip (principal) | CPT/HCPCS: 99213 ==

== ENCOUNTER 2024-07-25 15:31 | Outpatient (REF) | payer MEDICARE, BC, SELFPAY ==
[2024-07-25 21:33] LABS: Abs Immature Grans 0.02 10^3/uL (0.0-0.06); Absolute Basophil Count 0.04 10^3/uL (0.0-0.2); Absolute Eosinophil Count 0.06 10^3/uL (0.0-0.7); Absolute Lymphocyte Count 1.21 10^3/uL (1.2-3.4); Absolute Monocyte Count 0.62 10^3/uL (0.1-0.8); Absolute Neutrophil Count 3.61 10^3/uL (1.2-6.7); Basophils % 0.7 %; Eosinophils % 1.1 %; HCT 35.5 % (36.0-46.0); HGB 11.1 g/dL (11.2-15.7); Immature Grans % 0.4 %; Lymphocytes % 21.8 %; MCH 24.8 pg (27.0-33.0); MCHC 31.3 % (32.0-36.0); MCV 79 fL (80-95); MPV 11.4 fL (8.0-11.0); Monocytes % 11.2 %; Neutrophils % 64.8 %; Platelet Count 290 10^3/uL (130-400); RBC 4.47 10^6/uL (3.93-5.22); RDW 14.7 % (11.7-14.6); RDW-SD 42.3 fL; WBC 5.56 10^3/uL (4.4-10.8)
[2024-07-25 21:59] LABS: ALT 22 U/L (14-59); AST 25 U/L (15-37); Albumin 3.9 g/dL (3.4-5.0); Alkaline Phosphatase 101 U/L (46-116); Anion Gap 5.6 mmol/L (3-11); BUN 34 mg/dL (7-18); Bilirubin, Total 0.5 mg/dL (0.2-1.0); CO2 27.4 mmol/L (21.0-32.0); CREATININE 1.2 mg/dL (0.55-1.02); Calcium 9.3 mg/dL (8.5-10.1); Chloride 102 mmol/L (98-107); Estimated GFR 44.91 (mL/min/1.73m2); Glucose 98 mg/dL (74-106); Potassium 4.8 mmol/L (3.5-5.1); Sodium 135 mmol/L (136-145); Total Protein 6.9 g/dL (6.4-8.2)
== END 2024-07-25 15:32 | disposition home or self-care (01) ==
LOC: NCHCN 15:31
PROVIDERS: PCP Family Medicine; Visit Provider Family Medicine
DX: M35.1 Other overlap syndromes (principal); Z79.899 Other long term (current) drug therapy
CPT/HCPCS: 80053; 85025

== ENCOUNTER → 2024-09-10 10:21 | Outpatient (BNVA) | payer MEDICARE, BC, SELFPAY | PROVIDERS: PCP Family Medicine; Referring Provider Family Medicine; Visit Provider Podiatrist | DX: M20.42 Other hammer toe(s) (acquired), left foot (principal); M20.32 Hallux varus (acquired), left foot; M20.41 Other hammer toe(s) (acquired), right foot; L60.2 Onychogryphosis; L84 Corns and callosities; G62.9 Polyneuropathy, unspecified; M79.671 Pain in right foot; M79.672 Pain in left foot | CPT/HCPCS: 99214 ==

== ENCOUNTER 2024-10-10 13:56 | Outpatient (REF) | payer MEDICARE, BC, SELFPAY ==
[2024-10-10 15:14] LABS: HCT 33.5 % (36.0-46.0); HGB 10.6 g/dL (11.2-15.7); MCH 24.5 pg (27.0-33.0); MCHC 31.6 % (32.0-36.0); MCV 78 fL (80-95); MPV 10.6 fL (8.0-11.0); Platelet Count 261 10^3/uL (130-400); RBC 4.32 10^6/uL (3.93-5.22); RDW-SD 42.1 fL; WBC 6.22 10^3/uL (4.4-10.8)
[2024-10-10 15:27] LABS: ALT 25 U/L (14-59); AST 27 U/L (15-37); Albumin 3.9 g/dL (3.4-5.0); Alkaline Phosphatase 111 U/L (46-116); Anion Gap 6.3 mmol/L (3-11); BUN 38 mg/dL (7-18); Bilirubin, Total 0.4 mg/dL (0.2-1.0); CO2 26.7 mmol/L (21.0-32.0); CREATININE 1.4 mg/dL (0.55-1.02); Calcium 9.3 mg/dL (8.5-10.1); Chloride 98 mmol/L (98-107); Estimated GFR 37.33 (mL/min/1.73m2); Glucose 90 mg/dL (74-106); Potassium 5.2 mmol/L (3.5-5.1); Sodium 131 mmol/L (136-145); Total Protein 6.8 g/dL (6.4-8.2)
== END 2024-10-10 13:57 | disposition home or self-care (01) ==
LOC: NCHCN 13:56
PROVIDERS: PCP Family Medicine; Visit Provider Family Medicine
DX: Z00.00 Encounter for general adult medical examination without abnormal findings (principal)
CPT/HCPCS: 80053; 85027

== ENCOUNTER → 2024-10-18 13:44 | Outpatient (BNVA) | payer MEDICARE, BC, SELFPAY | PROVIDERS: PCP Family Medicine; Referring Provider Family Medicine; Visit Provider Internal Medicine Cardiovascular Disease | DX: I48.0 Paroxysmal atrial fibrillation (principal); I10 Essential (primary) hypertension | CPT/HCPCS: 99214 ==

== ENCOUNTER → 2024-12-24 11:29 | Outpatient (BNVA) | payer MEDICARE, BC, SELFPAY | PROVIDERS: PCP Family Medicine; Referring Provider Family Medicine; Visit Provider Podiatrist | DX: L60.2 Onychogryphosis (principal); L84 Corns and callosities; G60.8 Other hereditary and idiopathic neuropathies; M32.9 Systemic lupus erythematosus, unspecified; G62.9 Polyneuropathy, unspecified; M05.9 Rheumatoid arthritis with rheumatoid factor, unspecified; R20.2 Paresthesia of skin; L65.9 Nonscarring hair loss, unspecified; R23.8 Other skin changes; L85.8 Other specified epidermal thickening | CPT/HCPCS: 11719 ==

== ENCOUNTER 2025-01-23 17:15 | Outpatient (REF) | payer MEDICARE, BC, SELFPAY ==
[2025-01-23 15:08] LABS: Abs Immature Grans 0.03 10^3/uL (0.0-0.06); HCT 32.7 % (36.0-46.0); HGB 10.7 g/dL (11.2-15.7); Immature Grans % 0.4 %; MCH 25.1 pg (27.0-33.0); MCHC 32.7 % (32.0-36.0); MCV 77 fL (80-95); MPV 11.1 fL (8.0-11.0); Platelet Count 302 10^3/uL (130-400); RBC 4.26 10^6/uL (3.93-5.22); RDW 15.1 % (11.7-14.6); RDW-SD 41.5 fL; WBC 7.50 10^3/uL (4.4-10.8)
[2025-01-23 15:26] LABS: ALT 22 U/L (14-59); AST 25 U/L (15-37); Albumin 3.9 g/dL (3.4-5.0); Alkaline Phosphatase 108 U/L (46-116); Anion Gap 7.9 mmol/L (3-11); BUN 30 mg/dL (7-18); Bilirubin, Total 0.4 mg/dL (0.2-1.0); CO2 28.1 mmol/L (21.0-32.0); Calcium 9.6 mg/dL (8.5-10.1); Chloride 99 mmol/L (98-107); Estimated GFR 40.55 (mL/min/1.73m2); Glucose 83 mg/dL (74-106); Potassium 4.7 mmol/L (3.5-5.1); Sodium 135 mmol/L (136-145); Total Protein 6.8 g/dL (6.4-8.2)
== END 2025-01-23 17:16 | disposition home or self-care (01) ==
LOC: NCHCN 17:15
PROVIDERS: PCP Family Medicine; Visit Provider Family Medicine
DX: M35.9 Systemic involvement of connective tissue, unspecified (principal)
CPT/HCPCS: 80053; 85025

== ENCOUNTER 2025-02-07 03:03 | Outpatient (CLI) | payer MEDICARE, BC, SELFPAY ==
[2025-02-07 12:41] LABS: Creatine Kinase 142 U/L (26-192)
== END 2025-02-07 03:04 | disposition home or self-care (01) ==
LOC: LBO 03:03
PROVIDERS: PCP Family Medicine; Visit Provider Dermatology
DX: M62.81 Muscle weakness (generalized) (principal)
CPT/HCPCS: 36415; 82550; 82085

== ENCOUNTER 2025-02-18 12:16 | Outpatient (REF) | payer MEDICARE, BC, SELFPAY ==
[2025-02-18 17:30] LABS: EPI 027-NAP1-B1 PRESUMPTIVE NEGATIVE
[2025-02-19 20:07] LABS: Campylobacter PCR Negative (Negative); Shiga Toxin PCR Negative (Negative); Shigella/Enteroinvasive Ecoli Negative (Negative)
== END 2025-02-18 12:17 | disposition home or self-care (01) ==
LOC: NCHCN 12:16
PROVIDERS: PCP Family Medicine; Visit Provider Family Medicine
DX: R19.7 Diarrhea, unspecified (principal)
CPT/HCPCS: 87505; 83630

== ENCOUNTER → 2025-03-31 13:22 | Outpatient (BNVA) | payer MEDICARE, BC, SELFPAY | PROVIDERS: PCP Family Medicine; Referring Provider Family Medicine; Visit Provider Podiatrist | DX: L60.2 Onychogryphosis (principal); M79.674 Pain in right toe(s); R26.9 Unspecified abnormalities of gait and mobility; G60.8 Other hereditary and idiopathic neuropathies; M06.871 Other specified rheumatoid arthritis, right ankle and foot; M06.872 Other specified rheumatoid arthritis, left ankle and foot; M32.9 Systemic lupus erythematosus, unspecified; R20.2 Paresthesia of skin; N18.9 Chronic kidney disease, unspecified; L84 Corns and callosities; T69.1XXA Chilblains, initial encounter; X58.XXXA Exposure to other specified factors, initial encounter; L65.9 Nonscarring hair loss, unspecified; R23.8 Other skin changes; L85.8 Other specified epidermal thickening | CPT/HCPCS: 11719 ==

== ENCOUNTER 2025-04-15 15:43 | Outpatient (REF) | payer MEDICARE, BC, SELFPAY ==
[2025-04-15 21:00] LABS: HCT 32.0 % (36.0-46.0); HGB 10.1 g/dL (11.2-15.7); MCH 24.3 pg (27.0-33.0); MCHC 31.6 % (32.0-36.0); MCV 77 fL (80-95); MPV 10.9 fL (8.0-11.0); Platelet Count 286 10^3/uL (130-400); RBC 4.16 10^6/uL (3.93-5.22); RDW 15.2 % (11.7-14.6); RDW-SD 41.5 fL; WBC 6.62 10^3/uL (4.4-10.8)
[2025-04-15 21:16] LABS: ALT 15 U/L (10-49); AST 26 U/L (<34); Albumin 4.2 g/dL (3.2-5.0); Alkaline Phosphatase 93 U/L (46-116); Anion Gap 7.5 mmol/L (3-11); BUN 33 mg/dL (9-23); Bilirubin, Total 0.5 mg/dL (0.2-1.2); CO2 24.3 mmol/L (20.0-31.0); Calcium 9.4 mg/dL (8.3-10.6); Chloride 97 mmol/L (98-107); Glucose 77 mg/dL (74-106); Potassium 5.0 mmol/L (3.5-5.1); Sodium 129 mmol/L (136-145); Total Protein 6.8 g/dL (5.7-8.2)
== END 2025-04-15 15:44 | disposition home or self-care (01) ==
LOC: NCHCN 15:43
PROVIDERS: PCP Family Medicine; Visit Provider Family Medicine
DX: M35.1 Other overlap syndromes (principal)
CPT/HCPCS: 80053; 85027